=== PATIENT | female | born 1950 | race Caucasian/White ===

== ENCOUNTER 2018-06-16 10:46 | Inpatient (IN) | payer OTHER ==
[2018-06-16] MEDS ORDERED: HYDROCODONE/APAP 5/325 MG TAB ONE (11:36)
[2018-06-16 13:10] LABS: Absolute Lymphocytes (CBC) 1.3 K/uL (0.7-4.9); Absolute Monocytes 0.7 K/uL (0.1-1.3); Absolute Neutrophil 5.3 K/uL (1.8-8.0); Eosinophils % 0.5 % (0-4.4); Hematocrit 40.3 % (36.0-45.0); Lymphocytes % 17.9 % (15.3-44.8); MCH 34.8 pg (27.0-35.0); MCV 97.6 fL (80-100); MPV 8.6 fL (7.6-11.3); Monocytes % 8.8 % (3.3-12.3); RBC Red Blood Cell Count 4.13 M/uL (3.86-4.86)
[2018-06-16 13:14] LABS: Protime INR 0.91
[2018-06-16 13:28] LABS: ALT/SGPT 28 U/L (12-78); AST/SGOT 29 U/L (15-37); Albumin 3.6 g/dL (3.4-5.0); Alkaline Phosphatase 40 U/L (45-117); BUN Blood Urea Nitrogen 14 mg/dL (7-18); Bicarbonate 30 mmol/L (21-32); Bilirubin Direct 0.3 mg/dL (0-0.2); Bilirubin Total 0.9 mg/dL (0.2-1.0); Glucose Level 121 mg/dL (74-106); NT PRO-BNP 248 pg/mL (<125); Potassium 3.8 mmol/L (3.5-5.1); Protein, Total 7.6 g/dL (6.4-8.2); Sodium Level 134 mmol/L (136-145); Troponin (Emerg Dept Use Only) < 0.02 ng/mL (0.0-0.045)
--- NOTE | 2018-06-16 13:42 | RAD REPORT ---
EXAM DESCRIPTION: RAD - Chest Single View - 06/16/2018 12:51 pm CLINICAL HISTORY: Preop chest, right femur fracture COMPARISON: None. TECHNIQUE: AP portable chest image was obtained 1212 hours . FINDINGS: Hyperexpanded and fibrotic lung changes are present. No superimposed failure, infiltrate o r mass. Left hemidiaphragm is elevated. Heart and vasculature are normal. No measurable pleural effus ion and no pneumothorax. No acute bony abnormality seen. No acute aortic findings suspected. IMPRESSION: COPD chronic changes with no acute component.
--- NOTE | 2018-06-16 13:42 | RAD REPORT ---
EXAM DESCRIPTION: RAD - Hip Right 2 View - 06/16/2018 12:51 pm CLINICAL HISTORY: Fall, hip pain COMPARISON: None. FINDINGS: AP and cross-table lateral views were obtained. Transverse fracture of the femoral neck is present. Patient has a relatively short femoral neck with a fracture involving the subcapital and mi dportion of the neck. No extension into the intertrochanteric bone. No pathologic bone process. There is mild impaction along the medial margin of the fracture line. No dislocation of the femoral head. No femoral head AVN suspected. No significant periarticular mass or hematoma. Arterial calcifications are present. IMPRESSION: Impacted right femoral neck fracture as detailed. No pathologic component. No extension into the intertrochanteric portion of the femur.
--- NOTE | 2018-06-16 13:42 | RAD REPORT ---
EXAM DESCRIPTION: RAD - Lumbar Spine 3 Views - 06/16/2018 12:51 pm CLINICAL HISTORY: Fall 3 days earlier, back pain COMPARISON: None. FINDINGS: A three-view lumbar spine examination was performed. No compression fracture. Lumbar alexx s are normal in height and normal in AP alignment. Patient has a thoracolumbar scoliotic curvature. T here is left convex curvature with the apex at L4. Right lower thoracic convex [place] at T11. The L4 guilherme dy shows a very slight left lateral subluxation. Patient has mild for age endplate spurring changes. No blastic or expansile change. No lytic bone process. No disc space narrowing. Facet joint degenerat frankie changes are present. No pars defects identified. IMPRESSION: Mild for age degenerative change along with underlying thoracolumbar scoliosis. No compression fracture or acute finding identifiable.
--- NOTE | 2018-06-16 13:42 | RAD REPORT ---
EXAM DESCRIPTION: RAD - Pelvis - 06/16/2018 12:51 pm CLINICAL HISTORY: Fall, pelvic pain COMPARISON: None. TECHNIQUE: AP imaging of the pelvis was obtained. FINDINGS: No fracture of the bony pelvis. Sacral ala are partially obscured by bowel. No gross SI fabienne int abnormality. Proximal left femur and left hip joint show no acute findings. Right femoral neck fr acture is separately detailed. Phleboliths are seen along the pelvic floor. Arterial calcifications are present. No soft tissue abnormality. IMPRESSION: No fracture or acute finding of the bony pelvis. Right femur neck fracture separately detailed.
--- NOTE | 2018-06-16 14:26 | EDPHYS ---
Physician Documentation [facility] Name: Clari Brandt Age: 67 yrs Sex: Female : 1950 Arrival Date: 06/16/2018 Time: 10:47 Bed 15 Private MD: ED Physician Orlin Andrews HPI: 06/16 11:09 This 67 yrs old Female presents to ER via EMS with complaints of Fall Injury. jmm 11:09 Details of fall: The patient fell from an upright position. Onset: The symptoms/episode jmm began/occurred acutely, 3 day(s) ago. Associated injuries: The patient sustained right hip. This is a 67 year old female with a history of COPD, HTN, that presents to the ED with right hip pain following a fall which occurred 3 days ago. Patient walking down a step, began to fall, turned to her left side landing on her left hip. Denies head injury, denies back pain. Patient has been able to walk. . Historical: - Allergies: 10:52 No Known Allergies; hj - Home Meds: 10:52 carvedilol oral oral [Active]; amlodipine oral [Active]; alendronate oral oral hj [Active]; pravastatin oral oral [Active]; - PMHx: 10:52 Hypertension; Hyperlipidemia; Atrial Fib; COPD; hj - PSHx: 10:52 Unable to obtain; hj - Immunization history:: Adult Immunizations up to date. - Social history:: Smoking status: Patient uses tobacco products, Patient uses alcohol. - Ebola Screening: : Patient negative for fever greater than or equal to 101.5 degrees Fahrenheit, and additional compatible Ebola Virus Disease symptoms Patient denies exposure to infectious person Patient denies travel to an Ebola-affected area in the 21 days before illness onset. ROS: 11:09 Constitutional: Negative for fever, chills, and weight loss. jmm 11:09 Back: Negative for pain at rest. 11:09 MS/extremity: Positive for pain. 11:09 All other systems are negative. Exam: 11:09 Head/Face: atraumatic. Eyes: EOMI, no conjunctival erythema appreciated ENT: Moist jm Mucus Membranes Neck: Trachea midline, Supple Chest/axilla: Normal chest wall appearance and motion. Cardiovascular: Regular rate and rhythm. No edema appreciated Respiratory: Normal respirations, no respiratory distress appreciated Abdomen/GI: Non distended, soft Back: Normal ROM 11:09 Constitutional: The patient appears in no acute distress, alert, awake. 11:09 Musculoskeletal/extremity: right lateral hip TTP, no groin pain, pain on flexion, compartments are soft, full dorsalis pedis pulse, NVI. 11:09 Neuro: full extensor hallucis longus to the right lower extremity. 11:09 Psych: Behavior/mood is pleasant, cooperative. Vital Signs: 10:54 BP 126 / 67; Pulse 78; Resp 18; Temp 98.3(O); Pulse Ox 93% on R/A; Weight 46.72 kg; hj Height 5 ft. 2 in. (157.48 cm); Pain 8/10; 12:00 BP 121 / 69; Pulse 80; Resp 19; Pulse Ox 95% on 2 lpm NC; aj 13:11 BP 136 / 68; Pulse 71; Resp 20; Pulse Ox 95% on 2 lpm NC; aj 13:59 Pulse 70; Resp 26; Pulse Ox 95% on 2 lpm NC; 5 15:21 BP 126 / 73; Pulse 68; Resp 22; Pulse Ox 94% on 2 lpm NC; aj 10:54 Body Mass Index 18.84 (46.72 kg, 157.48 cm) hj MDM: 11:09 Patient medically screened. [facility] 13:30 Data reviewed: vital signs, nurses notes. Counseling: I had a detailed discussion with [facility] the patient and/or guardian regarding: the historical points, exam findings, and any diagnostic results supporting the discharge/admit diagnosis, the presence of at least one elevated blood pressure reading (>120/80) during this emergency department visit, radiology results. 14:22 Data reviewed: lab test result(s), EKG, radiologic studies. ED course: I discussed the [facility] patient with Dr. Jones whom will see the patient inpatient tomorrow. I discussed the patient with Dr. Khalil whom accepted admission. . 06/16 12:20 Order name: CBC with Diff; Complete Time: 13:21 [facility] 06/16 12:20 Order name: CMP; Complete Time: 13:29 [facility] 06/16 12:20 Order name: LFT's; Complete Time: 13:29 [facility] 06/16 12:20 Order name: Magnesium; Complete Time: 13:29 [facility] 06/16 12:20 Order name: NT PRO-BNP; Complete Time: 13:29 [facility] 06/16 11:15 Order name: Lumbar Spine (3 Views) XRAY; Complete Time: 13:48 [facility] 06/16 12:20 Order name: PT-INR; Complete Time: 13:21 [facility] 06/16 12:20 Order name: Troponin (emerg Dept Use Only); Complete Time: 13:29 [facility] 06/16 14:05 Order name: Urine Dipstick--Ancillary (enter results) ag 06/16 14:38 Order name: Basic Metabolic Panel EDWI 06/16 14:38 Order name: Basic Metabolic Panel [facility] 06/16 14:38 Order name: CBC with Automated Diff [facility] 06/16 14:38 Order name: CBC with Automated Diff [facility] 06/16 11:15 Order name: Pelvis XRAY; Complete Time: 13:48 [facility] 06/16 11:15 Order name: Hip Right 2 View XRAY; Complete Time: 13:48 [facility] 06/16 12:20 Order name: EKG; Complete Time: 12:21 [facility] 06/16 12:20 Order name: Cardiac monitoring; Complete Time: 13:09 [facility] 06/16 12:20 Order name: EKG - Nurse/Tech; Complete Time: 13:09 [facility] 06/16 12:20 Order name: IV Saline Lock; Complete Time: 13:09 [facility] 06/16 12:20 Order name: Labs collected and sent; Complete Time: 13:10 [facility] 06/16 12:20 Order name: O2 Per Protocol; Complete Time: 13:10 [facility] 06/16 12:20 Order name: O2 Sat Monitoring; Complete Time: 13:10 [facility] 06/16 12:37 Order name: Chest Single View XRAY; Complete Time: 13:48 [facility] 06/16 13:58 Order name: Mandel; Complete Time: 13:58 5 06/16 14:38 Order name: CONS Physician Consult [facility] 06/16 14:38 Order name: [facility] EDWI Administered Medications: 11:39 Drug: [place] 5 mg-325 mg 1 tabs Route: PO; aj 13:10 Follow up: Response: Pain is unchanged, physician notified aj Disposition: 06/16/18 14:25 Hospitalization ordered by Mansi Khalil for Observation. Preliminary diagnosis is Fracture of unspecified part of neck of unspecified femur. - Bed requested for Telemetry/MedSurg (observation). - Status is Observation. jl7 - Condition is Stable. - Problem is new. - Symptoms are unchanged. UTI on Admission? No Signatures: Dispatcher [employer] EDWI Adriana Byrne, RN RN Swetha Mackenzie, RN RN Gael Jones PA PA [facility] Vinay Vincent, RN LISA [facility] Ángel Gonzales RN RN jl7 Corrections: (The following items were deleted from the chart) 12:21 12:21 BASIC METABOLIC PANEL+C.LAB.BRZ ordered. [facility] 15:20 14:25 Hospitalization Ordered by Mansi Khalil MD for Observation. Preliminary dw diagnosis is Fracture of unspecified part of neck of unspecified femur. Bed requested for Telemetry/MedSurg (observation). Status is Observation. Condition is Stable. Problem is new. Symptoms are unchanged. UTI on Admission? No. [facility] 15:57 15:20 06/16/2018 14:25 Hospitalization Ordered by Mansi Khalil MD for Observation. jl7 Preliminary diagnosis is Fracture of unspecified part of neck of unspecified femur. Bed requested for Telemetry/MedSurg (observation). Status is Observation. Condition is Stable. Problem is new. Symptoms are unchanged. UTI on Admission? No. dw
--- NOTE | 2018-06-16 14:26 | ER ---
Nurse's Notes [facility] Name: Clari Brandt Age: 67 yrs Sex: Female : 1950 Arrival Date: 06/16/2018 Time: 10:47 Bed 15 Private MD: Diagnosis: Fracture of unspecified part of neck of unspecified femur Presentation: 06/16 10:48 Presenting complaint: EMS states: pt fell 3 days ago at home, tripped over her dog, hj denies hitting head and denies taking blood thinners; now pt complained of R lower back, hip area pain and R buttocks region pain; per EMS, couldn't palpate pedal pulse on the RLE; hx of COPD; BP- 132/86; HR- 76; O2 sat 89% RA; on 3L- 95% O2 sat;. Transition of care: patient was not received from another setting of care. Onset of symptoms was June 13, 2018. Risk Assessment: Do you want to hurt yourself or someone else? Patient reports no desire to harm self or others. Initial Sepsis Screen: Does the patient meet any 2 criteria? No. Patient's initial sepsis screen is negative. Does the patient have a suspected source of infection? No. Patient's initial sepsis screen is negative. Care prior to arrival: None. 10:48 Method Of Arrival: EMS: [facility] 10:48 Acuity: SNEHA 4 hj Triage Assessment: 10:53 General: Appears in no apparent distress. uncomfortable, slender, Behavior is calm, hj cooperative, appropriate for age. Pain: Complains of pain in R lower back, R hip, R buttocks. Historical: - Allergies: 10:52 No Known Allergies; hj - Home Meds: 10:52 carvedilol oral oral [Active]; amlodipine oral [Active]; alendronate oral oral hj [Active]; pravastatin oral oral [Active]; - PMHx: 10:52 Hypertension; Hyperlipidemia; Atrial Fib; COPD; hj - PSHx: 10:52 Unable to obtain; hj - Immunization history:: Adult Immunizations up to date. - Social history:: Smoking status: Patient uses tobacco products, Patient uses alcohol. - Ebola Screening: : Patient negative for fever greater than or equal to 101.5 degrees Fahrenheit, and additional compatible Ebola Virus Disease symptoms Patient denies exposure to infectious person Patient denies travel to an Ebola-affected area in the 21 days before illness onset. Screenin:53 Abuse screen: Denies threats or abuse. Denies injuries from another. Nutritional hj screening: No deficits noted. Tuberculosis screening: No symptoms or risk factors identified. Fall Risk None identified. Assessment: 11:04 General: Appears in no apparent distress. comfortable, Behavior is calm, cooperative, aj appropriate for age. Neuro: Level of Consciousness is awake, alert, obeys commands, Oriented to person, place, time, situation, Appropriate for age. Respiratory: Airway is patent Respiratory effort is even, unlabored, Respiratory pattern is regular, symmetrical. Derm: Skin is intact, is healthy with good turgor, Skin is pink, warm \T\ dry. normal. Musculoskeletal: Circulation, motion, and sensation intact. Range of motion: intact in all extremities, Reports pain in coccyx, left lower back, left gluteus yasmin and left gluteal fold. 15:34 Reassessment: Patient appears in no apparent distress at this time. No changes from aj previously documented assessment. Patient and/or family updated on plan of care and expected duration. Pain level reassessed. Patient is alert, oriented x 3, equal unlabored respirations, skin warm/dry/pink. Patient's went home. Vital Signs: 10:54 BP 126 / 67; Pulse 78; Resp 18; Temp 98.3(O); Pulse Ox 93% on R/A; Weight 46.72 kg; hj Height 5 ft. 2 in. (157.48 cm); Pain 8/10; 12:00 BP 121 / 69; Pulse 80; Resp 19; Pulse Ox 95% on 2 lpm NC; aj 13:11 BP 136 / 68; Pulse 71; Resp 20; Pulse Ox 95% on 2 lpm NC; aj 13:59 Pulse 70; Resp 26; Pulse Ox 95% on 2 lpm NC; mh5 15:21 BP 126 / 73; Pulse 68; Resp 22; Pulse Ox 94% on 2 lpm NC; aj 10:54 Body Mass Index 18.84 (46.72 kg, 157.48 cm) ED Course: 10:47 Patient arrived in ED. hj 10:50 Triage completed. hj 10:53 Arm band placed on right wrist. hj 10:53 Patient has correct armband on for positive identification. Placed in gown. Bed in low hj position. Call light in reach. Side rails up X2. 10:57 Gael Foley PA is PHCP. [facility] 10:57 Orlin Andrews MD is Attending Physician. [facility] 11:04 Swetha Kellogg, RN is Primary Nurse. aj 11:04 Oxygen administration via nasal cannula \T\ 2L/min Response to oxygen therapy: symptoms aj improved. 12:15 Inserted saline lock: 22 gauge in right forearm, using aseptic technique. Blood aj collected. 12:51 Lumbar Spine (3 Views) XRAY In Process Unspecified. EDMS 12:51 Pelvis XRAY In Process Unspecified. EDMS 12:51 Hip Right 2 View XRAY In Process Unspecified. EDMS 12:51 Chest Single View XRAY In Process Unspecified. EDMS 13:19 EKG done, by ED staff, reviewed by Orlin Andrews MD. [facility] 13:56 Urine collected: Mandel catheter specimen, nan colored. Mandel cath inserted, using 5 sterile technique, 16 Fr., by az, balloon inflated, to gravity drainage, urine specimen collected. 14:23 Mansi Khalil MD is Hospitalizing Provider. [facility] 15:25 No provider procedures requiring assistance completed. Patient admitted, IV remains in aj place. intact. Administered Medications: 11:39 Drug: [place] 5 mg-325 mg 1 tabs Route: PO; aj 13:10 Follow up: Response: Pain is unchanged, physician notified aj Outcome: 14:25 Decision to Hospitalize by Provider. [facility] 15:34 Admitted to Med/surg accompanied by [facility], via stretcher, room 209, with chart, Report aj called to Kei 15:34 Condition: good 15:34 Instructed on the need for admit. 15:57 Patient left the ED. jl7 Signatures: Dispatcher [employer] EDMS Swetha Kellogg, RN RN Gael Jones PA PA [facility] Vinay Vincent RN RN hj Martinez, Maria [facility] Ángel Gonzales RN RN jl7 Corrections: (The following items were deleted from the chart) 10:55 10:48 Presenting complaint: EMS states: pt fell 3 days ago at home, tripped over her hj dog, denies hitting head and denies taking blood thinners; now pt complained of R lower back, hip area pain and R buttocks region pain; per EMS, couldn't palpate pedal pulse on the RLE; hx of COPD; hj
[2018-06-16] MEDS ORDERED: ONDANSETRON 4 MG/2 ML VIAL IV PRN (14:36)
[2018-06-16] MEDS ORDERED: ACETAMINOPHEN 500 MG TAB PO PRN (14:36)
[2018-06-16] MEDS ORDERED: HYDROCODONE/APAP 5/325 MG TAB PO PRN (14:36)
--- NOTE | 2018-06-16 15:53 | P.HP ---
Certification for Inpatient Patient admitted to: Inpatient With expected LOS: >2 Midnights Patient will require the following post-hospital care: None Practitioner: I am a practitioner with admitting privileges, knowledge of patient current condition, hospital course, and medical plan of care. Services: Services provided to patient in accordance with Admission requirements found in Title 42 Section 412.3 of the Code of Federal Regulations Patient History Date of Service: 06/16/18 Primary Care Provider: Dr Gamez Reason for admission: Hip fracture History of Present Illness: This is a 67-year-old female with significant past medical history of high blood pressure, hyperlipidemia, tobacco abuse, COPD, who presented to the ED after having a fall. Patient stated that she had a fall about 4 days ago when she was out walking her dog. She slipped and fell at the porch. She started having some pain on the right hip but it is thought that it was just a sprain and will go away. Patient started using her walker for the next couple of days and was having progressively worsening pain and thus decided to come to the ER. Patient also had trouble tolerating weight to that area since the fall. Patient has no other complaints to offer. Denies having any fever chills nausea vomiting chest pain or any other associated symptoms at this time Allergies No Known Allergies Allergy (Unverified 06/16/18 14:45) Home Medications: Alendronate Sodium [Fosamax] 70 mg PO EVERY 7TH DAY 06/16/18 Amlodipine Besylate [Norvasc] 5 mg PO DAILY 06/16/18 Carvedilol [Coreg] 12.5 mg PO BID 06/16/18 Pravastatin Sodium [Pravachol] 20 mg PO DAILY 06/16/18 - Past Medical/Surgical History Has patient received pneumonia vaccine in the past: No Diabetic: No -: HTN -: HLP -: Afib -: COPD Past Surgical History: Reviewed- Non-Contributory - Family History Family History: Reviewed- Non-Contributory - Social History Smoking Status: Never smoker Review of Systems 10-point ROS is otherwise unremarkable Physical Examination - Physical Exam General: Alert, In no apparent distress HEENT: Atraumatic, PERRLA, Mucous membr. moist/pink, EOMI, Sclerae nonicteric Neck: Supple, 2+ carotid pulse no bruit, No LAD, Without JVD or thyroid abnormality Respiratory: Clear to auscultation bilaterally, Normal air movement Cardiovascular: Regular rate/rhythm, Normal S1 S2 Gastrointestinal: Normal bowel sounds, No tenderness Musculoskeletal: Tenderness (to the Right hip joint) Integumentary: No rashes Neurological: Normal speech, Normal tone, Abnormal gait, Abnormal strength Lymphatics: No axilla or inguinal lymphadenopathy - Studies Laboratory Data (last 24 hrs) 06/16/18 12:53: PT 10.7, INR 0.91 06/16/18 12:53: Sodium 134 L, Potassium 3.8, BUN 14, Creatinine 0.50 L, Glucose 121 H, Magnesium 2.0, Total Bilirubin 0.9, AST 29, ALT 28, Alkaline Phosphatase 40 L 06/16/18 12:53: WBC 7.4, Hgb 14.4, Hct 40.3, Plt Count 230 Assessment and Plan - Problems (Diagnosis) (1) Hip fracture Current Visit: Yes Status: Acute Plan: Right hip fracture status post fall -orthopedic surgery consulted. Appreciated recommendations at this time -plan for surgical procedure tomorrow morning. -NPO after midnight. -IV fluids Qualifiers: Encounter type: initial encounter Fracture type: closed Laterality: right Qualified Code(s): S72.001A - Fracture of unspecified part of neck of right femur, initial encounter for closed fracture (2) HTN (hypertension) Current Visit: Yes Status: Chronic Plan: Currently stable. Will restart home medication Qualifiers: Hypertension type: essential hypertension Qualified Code(s): I10 - Essential (primary) hypertension (3) Hyperlipidemia Current Visit: Yes Status: Chronic Plan: Currently stable will restart home medication Qualifiers: Hyperlipidemia type: mixed hyperlipidemia Qualified Code(s): E78.2 - Mixed hyperlipidemia (4) COPD (chronic obstructive pulmonary disease) Current Visit: Yes Status: Chronic Plan: Nebulizing treatment p.r.n. Qualifiers: COPD type: chronic bronchitis Chronic bronchitis type: mucopurulent Qualified Code(s): J41.1 - Mucopurulent chronic bronchitis - Plan Patient will be admitted to the medical-surgical floor for possible surgical procedure with orthopedic surgery tomorrow. Will continue with IV fluids and high monitoring here for the next 24-48 hr. Discharge Plan: Other Plan to discharge in: Greater than 2 days - Advance Directives Does patient have a Living Will: Yes Does patient have a Durable POA for Healthcare: Yes - Code Status/Comfort Care Code Status Assessed: Yes Critical Care: No
[2018-06-16] MEDS ORDERED: IPRATROPIUM BROM 0.5MG/2.5ML NEB PRN (15:56)
[2018-06-16] MEDS ORDERED: LEVALBUTEROL 0.63 MG/3 ML NEB NEB PRN (15:56)
[2018-06-16] MEDS: MORPHINE 4 MG/ML SYR IV PRN ×2 (16:08→21:35)
[2018-06-16] MEDS: NA CHLORIDE 0.9% 1,000 ML IV SCH (16:37)
[2018-06-16] MEDS ORDERED: INFLUENZA VACCINE (for 3y+) 0.5 ML DOSE IMVAC ONE (17:00)
[2018-06-16] MEDS ORDERED: PNEUMOCOCCAL VACCINE 0.5 ML IMVAC ONE (17:00)
[2018-06-16 19:21] LABS: Urine Blood 2+ (NEG); Urine Glucose NEGATIVE (NEG); Urine Protein 1+ (NEG)
[2018-06-16] MEDS: ATORVASTATIN 10 MG TAB PO SCH (21:36)
[2018-06-16] MEDS: CARVEDILOL 12.5 MG TAB PO SCH (21:36)
[2018-06-17] MEDS: NA CHLORIDE 0.9% 1,000 ML IV SCH ×2 (01:45→12:00)
--- NOTE | 2018-06-17 04:23 | CON ---
Date of Consultation: 06/16/2018 History Of Present Illness: I have seen this patient in the past, however, not for this problem. Un fortunately on Monday, she was coming down some stairs and apparently twisted awkwardly and perhaps even fell, injuring her right upper extremity and her right lower extremity. She continues to walk w ith the use of a walker, although she was in pain. She had to come to the emergency room today for c ontinued pain in her right hip. She thought it was just bruise. Physical Examination: On physical examination, she has a small scrape on her elbow, but she has full range of motion and es sentially no pain at the elbow. She also denies any other pain and there is no pain or crepitation w ith palpation of any of her long bones or joints with the exception of her right hip. Right hip has pain with movement and manipulation. X-rays are reviewed, which revealed a displaced right femoral neck fracture. Assessment: A 67-year-old female who will be 68 in August, who has a history of chronic obstructiv e pulmonary disease. She is relatively low demand. She does go outside and walk the dog. She does also feed the chickens and she may walk to the mailbox, but otherwise has very low demands. She also has history of chronic obstructive pulmonary disease. We did discuss bipolar hemiarthroplasty versu s total hip arthroplasty. At this time, she has reviewed her options with regard to possible groin p ain or need for revision if she has had bands. Also discussed total hip arthroplasty, and the risks, benefits, and alternatives of each, including a total hip arthroplasty, perhaps have a higher incide nce of dislocation and longer operative time. She says she understands everything, is presented at t his time and opts for bipolar hemiarthroplasty. We probably will, however, go ahead and use a high d emand stem. We will plan on doing this tomorrow. She should be n.p.o. after midnight. We will spea jasmin with physician regarding SCDs as well as medical clearance. All the patient's questions have otherwise been invited and answered. /LUL Voice ID: [id number] Report ID: [id number]
[2018-06-17 05:40] LABS: Absolute Lymphocytes (CBC) 1.3 K/uL (0.7-4.9); Absolute Monocytes 0.7 K/uL (0.1-1.3); Absolute Neutrophil 4.1 K/uL (1.8-8.0); Basophils % 1.2 % (0-1.3); Eosinophils % 1.5 % (0-4.4); Hematocrit 35.2 % (36.0-45.0); Lymphocytes % 20.6 % (15.3-44.8); MCV 99.9 fL (80-100); MPV 8.3 fL (7.6-11.3); Monocytes % 10.7 % (3.3-12.3); RBC Red Blood Cell Count 3.53 M/uL (3.86-4.86)
[2018-06-17 05:50] LABS: BUN Blood Urea Nitrogen 7 mg/dL (7-18); Bicarbonate 30 mmol/L (21-32); Glucose Level 95 mg/dL (74-106); Potassium 3.2 mmol/L (3.5-5.1); Sodium Level 135 mmol/L (136-145)
[2018-06-17] MEDS: MORPHINE 4 MG/ML SYR IV PRN ×2 (07:36→20:16)
[2018-06-17] MEDS: KCL 20 MEQ/100 mL IVPB 20 MEQ/100 ML BAG IV SCH ×2 (08:01→10:00)
[2018-06-17] MEDS ORDERED: HOME MED 1 EA UNK (Pravastatin Sodium [Pravachol] 20 MG) PO SCH (09:00)
[2018-06-17] MEDS: AMLODIPINE 5 MG TAB PO SCH (09:00)
[2018-06-17] MEDS: CARVEDILOL 12.5 MG TAB PO SCH ×2 (09:14→20:17)
[2018-06-17] MEDS ORDERED: Ringers Lactate 1,000 ML IV ONE ×2 (09:32→12:22)
[2018-06-17] MEDS ORDERED: CEFAZOLIN/SWI 1gm 2 GM/20 ML SYR ONE (09:55)
[2018-06-17] MEDS ORDERED: TRANEXAMIC ACID 1,000 MG in NA CHLORIDE 0.9% 50 ML IV ONE (10:00)
[2018-06-17] MEDS ORDERED: SUCCINYLCHOLINE 20 MG/ML (10 ML) IV ONE (10:05)
[2018-06-17] MEDS ORDERED: ROCURONIUM 50 MG/5 ML VIAL IV ONE (10:09)
[2018-06-17] MEDS ORDERED: PROPOFOL 200 MG/20 ML VIAL IV ONE (10:09)
[2018-06-17] MEDS ORDERED: FENTANYL CITR 250 MCG/5 ML ONE (10:10)
--- NOTE | 2018-06-17 11:15 | P.PN ---
Subjective Date of Service: 06/17/18 Primary Care Provider: Dr Gamez Chief Complaint: Hip fracture Subjective: No C/O voiced, NPO, Doing well Awaiting Surgery this AM Review of Systems 10-point ROS is otherwise unremarkable Physical Examination - Vital Signs Temperature: 98.7 F Blood Pressure: 134/60 Pulse: 74 Respirations: 18 Pulse Ox (%): 91 - Physical Exam General: Alert, In no apparent distress HEENT: Atraumatic, PERRLA, EOMI Neck: Supple, JVD not distended Respiratory: Clear to auscultation bilaterally, Normal air movement Cardiovascular: Regular rate/rhythm, Normal S1 S2 Gastrointestinal: Normal bowel sounds, No tenderness Musculoskeletal: No tenderness Integumentary: No rashes Neurological: Normal speech, Normal tone, Normal affect Lymphatics: No axilla or inguinal lymphadenopathy - Studies Laboratory Data (last 24 hrs) 06/16/18 12:53: PT 10.7, INR 0.91 06/16/18 12:53: Sodium 134 L, Potassium 3.8, BUN 14, Creatinine 0.50 L, Glucose 121 H, Magnesium 2.0, Total Bilirubin 0.9, AST 29, ALT 28, Alkaline Phosphatase 40 L 06/16/18 12:53: WBC 7.4, Hgb 14.4, Hct 40.3, Plt Count 230 Medications List Reviewed: Yes Assessment And Plan - Current Problems (Diagnosis) (1) Hip fracture Current Visit: Yes Status: Acute Plan: Right hip fracture status post fall -orthopedic surgery consulted. Appreciated recommendations at this time -plan for surgical procedure today -NPO at this time -IV fluids Qualifiers: Encounter type: initial encounter Fracture type: closed Laterality: right Qualified Code(s): S72.001A - Fracture of unspecified part of neck of right femur, initial encounter for closed fracture (2) HTN (hypertension) Current Visit: Yes Status: Chronic Plan: Currently stable. -Started on Home medication Qualifiers: Hypertension type: essential hypertension Qualified Code(s): I10 - Essential (primary) hypertension (3) Hyperlipidemia Current Visit: Yes Status: Chronic Plan: Currently stable Qualifiers: Hyperlipidemia type: mixed hyperlipidemia Qualified Code(s): E78.2 - Mixed hyperlipidemia (4) COPD (chronic obstructive pulmonary disease) Current Visit: Yes Status: Chronic Plan: Nebulizing treatment p.r.n. Qualifiers: COPD type: chronic bronchitis Chronic bronchitis type: mucopurulent Qualified Code(s): J41.1 - Mucopurulent chronic bronchitis - Plan Awaiting surgical Intervention this AM with orthopedics. Discharge Plan: Other Plan to discharge in: 48 Hours - Code Status/Comfort Care Code Status Assessed: Yes Critical Care: No
[2018-06-17] MEDS: HYDROCODONE/APAP 10/325 TAB PO PRN ×2 (15:42→23:56)
[2018-06-17] MEDS: CEFAZOLIN/SWI 1gm 1 GM/10 ML SYR IV SCH (17:13)
[2018-06-17] MEDS ORDERED: KCL 20 MEQ/100 mL IVPB 20 MEQ/100 ML BAG IV SCH (18:00)
[2018-06-17] MEDS: ATORVASTATIN 10 MG TAB PO SCH (20:16)
--- NOTE | 2018-06-17 23:07 | OP ---
Date of Procedure: 06/17/2018 Surgeon: Pio Jones MD Preoperative Diagnosis: Right hip femoral neck fracture, which was displaced. Postoperative Diagnosis: Right hip femoral neck fracture, which was displaced. Procedures: Right hip bipolar hemiarthroplasty using a Biomet Taperloc stem and a bipolar head, whic h is -3. Estimated Blood Loss: 100 cc. Complications: There were no complications. Specimen: The head and neck are sent to pathology. Indication For Operation: Ms. Brandt is a 67-year-old female who has COPD, is relatively low demand. She does walk, however, mostly feeding chickens and perhaps walk the dog, but otherwise, is a limit ed ambulator. She unfortunately fell down some stairs, injuring her right lower extremity. She was seen and examined in the emergency department. She was ruled out for other injuries with the excepti on of a displaced right femoral neck fracture. On further review of her history, she said this happe robert most likely on Monday, initially being seen on Monday in the emergency room because she though t she had just bruised. All risks, benefits, and alternatives of different methods of treating this fracture been discussed with her including nonoperative management, open reduction of screw fixation, total hip arthroplasty or bipolar hemiarthroplasty. Given all risks, benefits, and alternatives, th e patient has decided on bipolar hemiarthroplasty. We will, however, use a higher demand stem in rebecca e she develops groin pain or has difficulty which would necessitate conversion to a total hip arthrop lasty. She says she understands everything as presented and wishes to proceed. Description Of Procedure: The patient was taken to the operating room, placed in supine position. G eneral anesthesia was obtained by staff. Following this, she was then placed on the operative table where she was positioned using hip positioners. Following this, her right lower extremity was then p repped and draped in usual sterile fashion for the procedure. A standard posterolateral incision was then taken down carefully through skin and soft tissues. Meticulous hemostasis being maintained usi ng Bovie electrocautery. This leads down to the fascia. A small stab wound was made in the fascia t o ensure correct placement. The fascial incision was then brought up carefully to near the tip of th e greater trochanter where the gluteus yasmin were encountered. These were then gently divided usin edie finger. After this, the sciatic nerve was located and was found to be superficial to the external rotators, and therefore, great care was made to protect it throughout the remainder of the case. Fol lowing this, the external rotators and capsule were then taken down carefully and tagged for later re pair. The femoral neck was performed using standard neck cut. The femoral neck fragments as well as head were then removed. The head was sized using ring gauges which would fit through 43. After thi s, any debris or obstructions in the acetabulum were then removed. The teres ligament was coagulated . The wound was irrigated using jet lavage. The patient was then turned back to the femur where can al-finding reamer was used followed by the safety deposit boxes custodian, which allows for lateralization. After this, it was then broached sequentially to a size 8 and the 8 appeared to fit very well without any sign of subsidence. It was then trialed with a standard ball. Standard ball does come to full extension wi th a slight amount of creaking. Decision was made to trial with a -3. The -3 you can bring to full flexion, full adduction at least 30 degrees of internal rotation for any sign of dislocation. We dec ided that this would be the most appropriate size. There was no shuck either laterally or inferiorly . The broach was removed and the final stem was then placed. It was then again re-trialed and was f ound to be stable in the above areas. The final ball was then placed and relocated. The wound was i rrigated using jet lavage and the external rotators and capsule were then repaired back to the greate r trochanter via bone tunnels. It was again irrigated and the fascia was closed in a watertight fash ion using heavy Vicryl sutures, was again irrigated. The skin was closed using interrupted Vicryl magallon tures, followed by ynes. The patient was then placed in Aquacel dressing and an abduction pillow, awakened, and taken to recovery room in good condition. There were no complication sAntoni KHOURY/LUL Voice ID: [id number] Report ID: [id number]
[2018-06-18] MEDS: CEFAZOLIN/SWI 1gm 1 GM/10 ML SYR IV SCH ×3 (01:32→17:26)
[2018-06-18 05:32] LABS: BUN Blood Urea Nitrogen 6 mg/dL (7-18); Bicarbonate 30 mmol/L (21-32); Glucose Level 100 mg/dL (74-106); Potassium 3.3 mmol/L (3.5-5.1); Sodium Level 134 mmol/L (136-145)
[2018-06-18] MEDS ORDERED: POTASSIUM 25 MEQ EFFERV TAB PO ONE (06:13)
[2018-06-18] MEDS: HYDROCODONE/APAP 10/325 TAB PO PRN ×3 (06:42→23:06)
[2018-06-18] MEDS: CARVEDILOL 12.5 MG TAB PO SCH ×2 (09:00→21:02)
[2018-06-18] MEDS: AMLODIPINE 5 MG TAB PO SCH (09:00)
[2018-06-18] MEDS: NA CHLORIDE 0.9% 1,000 ML IV SCH ×2 (10:02)
--- NOTE | 2018-06-18 10:14 | EKG ---
Test Date: 2018-06-16 Test Time: 13:06:33 [employer] Sales Associate: CELENA MEASUREMENT RESULTS: Intervals: Rate: 65 DE: 80 QRSD: 74 QT: 416 QTc: 432 [place]: P: 30 DE: 80 QRS: 82 T: 78 INTERPRETIVE STATEMENTS: Sinus rhythm with short DE Otherwise normal ECG Compared to ECG 06/16/2000 20:36:00 Short DE interval now present Electronically Signed On 06-18-18 10:13:05 CDT by Dragan Crenshaw
--- NOTE | 2018-06-18 13:56 | P.PN ---
Subjective Date of Service: 06/18/18 Primary Care Provider: Dr Gamez Chief Complaint: Hip fracture PATIENT SEEN AND EXAMINED AT BEDSIDE WITH RN. CHART REVIEWED. Patient is status post ORIF. Doing well overall no complaints to offer Review of Systems 10-point ROS is otherwise unremarkable Physical Examination - Vital Signs Temperature: 98.3 F Blood Pressure: 142/66 Pulse: 78 Respirations: 20 Pulse Ox (%): 93 - Physical Exam General: Alert, In no apparent distress HEENT: Atraumatic, PERRLA, EOMI Neck: Supple, JVD not distended Respiratory: Clear to auscultation bilaterally, Normal air movement Cardiovascular: Regular rate/rhythm, Normal S1 S2 Gastrointestinal: Normal bowel sounds, No tenderness Musculoskeletal: No tenderness Integumentary: No rashes Neurological: Normal speech, Normal tone, Normal affect Lymphatics: No axilla or inguinal lymphadenopathy - Studies Medications List Reviewed: Yes Assessment And Plan - Current Problems (Diagnosis) (1) Hip fracture Onset Date: 06/18/18 Current Visit: Yes Status: Acute Plan: Right hip fracture status post fall -orthopedic surgery consulted. Appreciated recommendations at this time -status post ORIF POD 1 -Send currently patient pinning PT evaluation. -case management consulted for placement Qualifiers: Encounter type: initial encounter Fracture type: closed Laterality: right Qualified Code(s): S72.001A - Fracture of unspecified part of neck of right femur, initial encounter for closed fracture (2) HTN (hypertension) Onset Date: 06/18/18 Current Visit: Yes Status: Chronic Plan: Currently stable. -Started on Home medication Qualifiers: Hypertension type: essential hypertension Qualified Code(s): I10 - Essential (primary) hypertension (3) Hyperlipidemia Onset Date: 06/18/18 Current Visit: Yes Status: Chronic Plan: Currently stable Qualifiers: Hyperlipidemia type: mixed hyperlipidemia Qualified Code(s): E78.2 - Mixed hyperlipidemia (4) COPD (chronic obstructive pulmonary disease) Onset Date: 06/18/18 Current Visit: Yes Status: Chronic Plan: Nebulizing treatment p.r.n. Qualifiers: COPD type: chronic bronchitis Chronic bronchitis type: mucopurulent Qualified Code(s): J41.1 - Mucopurulent chronic bronchitis - Plan Currently awaiting clinical improvement and PT evaluation at this time. Case management consulted for placement for inpatient rehab versus detention facility Discharge Plan: Other Plan to discharge in: 72 Hours - Code Status/Comfort Care Code Status Assessed: Yes Critical Care: No
[2018-06-18] MEDS: ATORVASTATIN 10 MG TAB PO SCH (21:01)
[2018-06-18] MEDS: ENOXAPARIN 30 MG/0.3 ML SQ SCH (21:01)
[2018-06-19] MEDS: HYDROCODONE/APAP 10/325 TAB PO PRN ×2 (05:16→19:12)
[2018-06-19 06:45] LABS: BUN Blood Urea Nitrogen 9 mg/dL (7-18); Bicarbonate 33 mmol/L (21-32); Glucose Level 102 mg/dL (74-106); Potassium 3.7 mmol/L (3.5-5.1); Sodium Level 134 mmol/L (136-145)
[2018-06-19] MEDS: AMLODIPINE 5 MG TAB PO SCH (09:58)
[2018-06-19] MEDS: ENOXAPARIN 30 MG/0.3 ML SQ SCH ×2 (09:59→21:19)
[2018-06-19] MEDS: CARVEDILOL 12.5 MG TAB PO SCH ×2 (09:59→21:19)
--- NOTE | 2018-06-19 10:28 | PN ---
Date of Progress Note: 06/18/2018 The patient is 1 day status post right bipolar hemiarthroplasty. On seeing her today, her incision i s clean, dry, and intact. Her heels are nontender. She is neurovascularly intact. She has not been up with Physical Therapy yet. She says her pain is manageable. At this time, we anticipate Physica l Therapy to proceed with therapy today with posterior hip precautions, and we will see how she does. We would remove the Mandel as soon as possible. Otherwise, we would start Lovenox today, and all of her questions have otherwise been answered. ALFONSO Voice ID: [id number] Report ID: [id number]
--- NOTE | 2018-06-19 15:51 | P.PN ---
Subjective Date of Service: 06/19/18 Primary Care Provider: Dr Gamez Chief Complaint: Hip fracture Subjective: Improving, Working w/ PT Patient seen and examined at bedside. No family at bedside. Chart reviewed and Case discussed with nursing staff. Patient working with physical therapy, improved activity. No concerns or complaints voiced this morning. Review of Systems 10-point ROS is otherwise unremarkable Physical Examination - Vital Signs Temperature: 98.1 F Blood Pressure: 110/55 Pulse: 87 Respirations: 17 Pulse Ox (%): 90 - Physical Exam General: Alert, In no apparent distress HEENT: Atraumatic, PERRLA, EOMI Neck: Supple, JVD not distended Respiratory: Clear to auscultation bilaterally, Normal air movement Cardiovascular: Regular rate/rhythm, Normal S1 S2 Gastrointestinal: Normal bowel sounds, No tenderness Musculoskeletal: No tenderness Integumentary: No rashes Neurological: Normal speech, Normal tone, Normal affect Lymphatics: No axilla or inguinal lymphadenopathy - Studies Medications List Reviewed: Yes Assessment And Plan - Current Problems (Diagnosis) (1) Hip fracture Onset Date: 06/18/18 Current Visit: Yes Status: Acute Plan: Patient is status post ORIF POD#2. Pain well controlled with medications. Patient was given physical therapy in-house. Disposition options are 1) home with home health/rehab 2) SNF 3) inpatient rehab. Social work on board, working on placement. Will see how patient does with physical therapy tomorrow. Qualifiers: Encounter type: initial encounter Fracture type: closed Laterality: right Qualified Code(s): S72.001A - Fracture of unspecified part of neck of right femur, initial encounter for closed fracture (2) COPD (chronic obstructive pulmonary disease) Onset Date: 06/18/18 Current Visit: Yes Status: Chronic Plan: Nebulizer treatment as needed. Qualifiers: COPD type: chronic bronchitis Chronic bronchitis type: mucopurulent Qualified Code(s): J41.1 - Mucopurulent chronic bronchitis (3) HTN (hypertension) Onset Date: 06/18/18 Current Visit: Yes Status: Chronic Plan: Stable on home medications. Continue Qualifiers: Hypertension type: essential hypertension Qualified Code(s): I10 - Essential (primary) hypertension (4) Hyperlipidemia Onset Date: 06/18/18 Current Visit: Yes Status: Chronic Plan: Stable at this time. Qualifiers: Hyperlipidemia type: mixed hyperlipidemia Qualified Code(s): E78.2 - Mixed hyperlipidemia
[2018-06-19] MEDS: ATORVASTATIN 10 MG TAB PO SCH (21:19)
[2018-06-20] MEDS: HYDROCODONE/APAP 10/325 TAB PO PRN ×2 (05:27→14:00)
[2018-06-20] MEDS ORDERED: POTASSIUM 25 MEQ EFFERV TAB PO ONE (06:40)
[2018-06-20] MEDS: AMLODIPINE 5 MG TAB PO SCH (08:23)
[2018-06-20] MEDS: ENOXAPARIN 30 MG/0.3 ML SQ SCH (08:23)
[2018-06-20] MEDS: CARVEDILOL 12.5 MG TAB PO SCH (08:23)
--- NOTE | 2018-06-20 17:44 | P.DS ---
Admission Date: 06/17/18 Discharge Date: 06/20/18 Primary Care Provider: Dr Gamez Disposition: ROUTINE DISCHARGE Discharge Condition: GOOD Reason for Admission: Hip fracture Consultations: Orthopedic surgeon - Problems (1) Hip fracture Onset Date: 06/18/18 Current Visit: Yes Status: Acute Qualifiers: Encounter type: initial encounter Fracture type: closed Laterality: right Qualified Code(s): S72.001A - Fracture of unspecified part of neck of right femur, initial encounter for closed fracture (2) HTN (hypertension) Onset Date: 06/18/18 Current Visit: Yes Status: Chronic Qualifiers: Hypertension type: essential hypertension Qualified Code(s): I10 - Essential (primary) hypertension (3) Hyperlipidemia Onset Date: 06/18/18 Current Visit: Yes Status: Chronic Qualifiers: Hyperlipidemia type: mixed hyperlipidemia Qualified Code(s): E78.2 - Mixed hyperlipidemia (4) COPD (chronic obstructive pulmonary disease) Onset Date: 06/18/18 Current Visit: Yes Status: Chronic Qualifiers: COPD type: chronic bronchitis Chronic bronchitis type: mucopurulent Qualified Code(s): J41.1 - Mucopurulent chronic bronchitis Brief History of Present Illness: This is a 67-year-old female with significant past medical history of high blood pressure, hyperlipidemia, tobacco abuse, COPD, who presented to the ED after having a fall. Patient stated that she had a fall about 4 days ago when she was out walking her dog. She slipped and fell at the porch. She started having some pain on the right hip but it is thought that it was just a sprain and will go away. Patient started using her walker for the next couple of days and was having progressively worsening pain and thus decided to come to the ER. Patient also had trouble tolerating weight to that area since the fall. Patient has no other complaints to offer. Denies having any fever chills nausea vomiting chest pain or any other associated symptoms at this time Hospital Course: Overall during the hospital stay patient remained stable The patient was admitted to the hospital for right femur neck fracture after she had a fall at the house 4 days ago. Patient was seen by orthopedic surgeon here in the hospital. Patient had ORIF of the right femur neck fracture. Patient tolerated the procedure well and did overall well as well. Initially patient had a physical therapy consult in an effort to transfer patient to inpatient rehab. However patient did exceptionally well and wanted to go home this was discharged home under stable condition with home health PT. Patient demonstrated understanding and thus was discharged home under stable condition. Patient was asked to follow up with orthopedics in 1 about 1-2 days post discharge. Vital Signs/Physical Exam: Temp Pulse Resp BP Pulse Ox 97.5 F 74 18 104/56 L 96 06/20/18 12:00 06/20/18 12:00 06/20/18 12:00 06/20/18 12:00 06/20/18 12:00 General: Alert, In no apparent distress HEENT: Atraumatic, PERRLA, EOMI Neck: Supple, JVD not distended Respiratory: Clear to auscultation bilaterally, Normal air movement Cardiovascular: Regular rate/rhythm, Normal S1 S2 Gastrointestinal: Normal bowel sounds, No tenderness Musculoskeletal: No tenderness Integumentary: No rashes Neurological: Normal speech, Normal tone, Normal affect Lymphatics: No axilla or inguinal lymphadenopathy Laboratory Data at Discharge: WBC 6.3 K/uL (4.3-10.9) D 06/17/18 05:12 Hgb 12.7 g/dL (12.0-15.0) 06/17/18 05:12 Hct 35.2 % (36.0-45.0) L 06/17/18 05:12 Plt Count 234 K/uL (152-406) 06/17/18 05:12 PT 10.7 SECONDS (9.5-12.5) 06/16/18 12:53 INR 0.91 06/16/18 12:53 Sodium 134 mmol/L (136-145) L 06/19/18 05:48 Potassium 3.7 mmol/L (3.5-5.1) 06/19/18 05:48 BUN 9 mg/dL (7-18) 06/19/18 05:48 Creatinine 0.40 mg/dL (0.55-1.3) L 06/19/18 05:48 Glucose 102 mg/dL (74-106) 06/19/18 05:48 Magnesium 2.0 mg/dL (1.8-2.4) 06/16/18 12:53 Total Bilirubin 0.9 mg/dL (0.2-1.0) 06/16/18 12:53 AST 29 U/L (15-37) 06/16/18 12:53 ALT 28 U/L (12-78) 06/16/18 12:53 Alkaline Phosphatase 40 U/L (45-117) L 06/16/18 12:53 Home Medications: Alendronate Sodium [Fosamax] 70 mg PO EVERY 7TH DAY 06/16/18 Amlodipine Besylate [Norvasc] 5 mg PO DAILY 06/16/18 Carvedilol [Coreg*] 12.5 mg PO BID 06/16/18 Pravastatin Sodium [Pravachol] 20 mg PO DAILY 06/16/18 Tramadol HCl [Ultram] 50 mg PO Q6H #20 tablet 06/20/18 New Medications: Tramadol HCl [Ultram] 50 mg PO Q6H #20 tablet Patient Discharge Instructions: Please f.u with PCP and Dr Jones in 1 to 2 weeks post discharge. New medication. Tramadol 50mg q6h for pain Diet: Regular Activity: Ad karen Followup: iPo Jones MD [ACTIVE - CAN ADMIT] - 1 Week (Call for appointment.)
[2018-06-21] MEDS ORDERED: ALENDRONATE 70 MG TAB PO SCH (06:00)
== END 2018-06-20 15:32 | disposition home health service (06) | DRG 470 ==
LOC: ER 10:46 → ERHOLD 14:35 → 2ND 15:34 → OBSVTOIN 06-17 12:27
PROVIDERS: ADMIT Family Medicine; ATTEND Family Medicine
PROC: 0SRR0JZ Replacement of Right Hip Joint, Femoral Surface with Synthetic Substitute, Open Approach (ICD-10-PCS; principal; 2018-06-17 10:00)
DX: S72.001A Fracture of unspecified part of neck of right femur, initial encounter for closed fracture (principal); E87.2 Acidosis; W10.8XXA Fall (on) (from) other stairs and steps, initial encounter; Y93.01 Activity, walking, marching and hiking; Y92.018 Other place in single-family (private) house as the place of occurrence of the external cause; F17.210 Nicotine dependence, cigarettes, uncomplicated; I48.91 Unspecified atrial fibrillation; I10 Essential (primary) hypertension; J41.1 Mucopurulent chronic bronchitis
CPT/HCPCS: 36415; 51702; 71045; 72100; 72170; 80048; 80053; 81003; 82248; 83735; 83880; 84132; 84484; 85025; 85610; 88305; 88311; 90670; 93005; 97163; 99285; G0008; G0009; G0378; J0330; J0690; J1650; J7030; Q2035

== ENCOUNTER → 2023-10-04 | Emergency (ER) | payer OTHER ==
[~2023-10-04] MED LIST: ALBUTEROL 2.5 MG/3 ML NEB SOL ONE; ASPIRIN 81 MG CHEWABLE TABLET ONE; FAMOTIDINE 20 MG/2 ML VIAL IV ONE; HEPARIN 5000 UNIT/ML 1 ML VIAL ONE; HEPARIN/D5W 25,000 UNIT/500 ML BAG IV ONE; IPRATROPIUM BROM 0.5MG/2.5ML ONE; LEVALBUTEROL 1.25 MG/3 ML NEB ONE; METHYLPREDNISOLONE 125 MG INJ ONE; NA CHLORIDE 0.9% 1,000 ML ONE; ONDANSETRON 4 MG/2 ML VIAL ONE; SOD POLYSTYREN SUL 15 GM/60 ML UCUP ONE
--- OUTSIDE RECORDS SUMMARY | 2023-10-04 15:14 | XMS REPORT | Continuity of Care Document ---
Author Name Unknown Address [address] [facility] [place] [address] [facility] Address [address] [facility] [place] [address] Care Team Providers Care Nurse Office Name Role Phone Teri Ashley Attending Clinician Unavailable Vigil, Na L Attending Clinician Unavailable Radiology Attending Clinician Unavailable RADIOLOGY Attending Clinician Unavailable Doctor Unassigned, [place] Attending Clinician U navailable Ellis-Mbayo_A_AH Attending Clinician Unavailable Ellis-Mbayo_A_AH Admitting Clinician Unavailable Payers Payer Name Policy Type Policy Number Effective Date Expirati on Date Source [place] [id number] 2020 00:00:00 [place] [id number] 2020 00:00:00 [facility] [place] [employer] (MEDICARE REPLACEMENT/ADV ANTAGE - HMO) [id number] 2019 00:00:00 Problems Condition Name Condition Details Condition Category Status Onset Date Resolution Date Last Treatment Date Treating Clinician Comments Source [id number] Hypercalce cole Problem [facility] [id number] Age related osteoporos is, unspecifie d pathologic al fracture presence Problem [facility] Tobacco user Cigarette nicotine dependence without complicati on Problem [facility] [id number] Mixed hyperlipid emia Problem [facility] [id number] Primary hypertensi on Problem [facility] [id number] Smoking greater than 40 pack years Problem [facility] [id number] Severe episode of recurrent major depressive disorder, without psychotic features Problem [facility] Allergies, Adverse Reactions, Alerts Allergy Name Allergy Type Status Severity Reaction(s) Onset Date Inactive Date Treating Clinician Comments Source NO KNOWN ALLERGIE S Drug Class Active [facility] Social History Social Habit Start Date Stop Date Quantity Comments Source Exposure to SARS-CoV-2 (event) Not sure [facility] History of Tobacco Use Current Smoker [facility] Sex Assigned At [facility] Tobacco use and exposure 2019-03-26 00:00:00 2019-03-26 00:00:00 Never used [facility] Cigarettes smoked current (pack per day) - Reported 2019-03-26 00:00:00 2019-03-26 00:00:00 [facility] Cigarette pack-years 2019-03-26 00:00:00 2019-03-26 00:00:00 [facility] Alcohol intake 2019-03-26 00:00:00 2019-03-26 00:00:00 Current drinker of alcohol (finding) [facility] Smoking Status Start Date Stop Date Source Current Smoker 2023-09-07 00:00:00 [facility] Medications Ordered Medication Name Filled Medication Name Start Date Stop Date Current Medication? Ordering Clinician Indication Dosage Frequency Signature (SIG) Comments Components Source buPROPion HCl ER (XL) 150 MG buPROPion HCl ER (XL) 150 MG 8 00:00: 00 No 1{table t_in_th e_morni ng} QD buPROPion HCl ER (XL) 150 MG buPROPion HCl ER (XL) 150 MG buPROPion HCl ER (XL) 150 MG 2021- 8- 00:00: 00 No 1{table t_in_th e_morni ng} QD buPROPion HCl ER (XL) 150 MG buPROPion HCl ER (XL) 150 MG buPROPion HCl ER (XL) 150 MG 04-04 00:00: 00 No 1{table t_in_th charity_bruce hong} QD buPROPion HCl ER (XL) 150 MG lisinopril (PRINIVIL,Z ESTRIL) 10 mg tablet 11-29 16:30: 30 Yes 10mg Take 10 mg by mouth daily. [facility] vitamin B-12 (VITAMIN B-12) 1,000 mcg tablet 11-29 16:30: 30 Yes 1000ug Take 1,000 mcg by mouth daily. [facility] pravastatin (PRAVACHOL) 40 mg tablet 11-29 16:30: 30 Yes 40mg Take 40 mg by mouth at bedtime. [facility] lisinopril (PRINIVIL,Z ESTRIL) 10 mg tablet 11-29 16:30: 30 Yes 10mg Take 10 mg by mouth daily. [facility] vitamin B-12 (VITAMIN B-12) 1,000 mcg tablet 11-29 16:30: 30 Yes 1000ug Take 1,000 mcg by mouth daily. [facility] pravastatin (PRAVACHOL) 40 mg tablet 11-29 16:30: 30 Yes 40mg Take 40 mg by mouth at bedtime. [facility] lisinopril (PRINIVIL,Z ESTRIL) 10 mg tablet 11-29 16:30: 30 Yes 10mg Take 10 mg by mouth daily. [facility] vitamin B-12 (VITAMIN B-12) 1,000 mcg tablet 11-29 16:30: 30 Yes 1000ug Take 1,000 mcg by mouth daily. [facility] pravastatin (PRAVACHOL) 40 mg tablet 11-29 16:30: 30 Yes 40mg Take 40 mg by mouth at bedtime. [facility] lisinopril (PRINIVIL,Z ESTRIL) 10 mg tablet 11-29 16:30: 30 Yes 10mg Take 10 mg by mouth daily. [facility] vitamin B-12 (VITAMIN B-12) 1,000 mcg tablet 11-29 16:30: 30 Yes 1000ug Take 1,000 mcg by mouth daily. [facility] pravastatin (PRAVACHOL) 40 mg tablet 11-29 16:30: 30 Yes 40mg Take 40 mg by mouth at bedtime. [facility] carvedilol (COREG) 12.5 mg tablet 11-29 16:29: 45 Yes 12.5mg Take 12.5 mg by mouth 2 (two) times daily with meals. [facility] folic acid (FOLVITE) 400 mcg tablet 11-29 16:29: 45 Yes 400ug Take 400 mcg by mouth daily. [facility] carvedilol (COREG) 12.5 mg tablet 11-29 16:29: 45 Yes 12.5mg Take 12.5 mg by mouth 2 (two) times daily with meals. [facility] folic acid (FOLVITE) 400 mcg tablet 11-29 16:29: 45 Yes 400ug Take 400 mcg by mouth daily. [facility] carvedilol (COREG) 12.5 mg tablet 11-29 16:29: 45 Yes 12.5mg Take 12.5 mg by mouth 2 (two) times daily with meals. [facility] folic acid (FOLVITE) 400 mcg tablet 11-29 16:29: 45 Yes 400ug Take 400 mcg by mouth daily. [facility] carvedilol (COREG) 12.5 mg tablet 11-29 16:29: 45 Yes 12.5mg Take 12.5 mg by mouth 2 (two) times daily with meals. [facility] folic acid (FOLVITE) 400 mcg tablet 11-29 16:29: 45 Yes 400ug Take 400 mcg by mouth daily. [facility] ergocalcife rol, vitamin d2, (VITAMIN D) 50,000 unit capsule 11-29 00:00: 00 Yes [id number] Take 50,000 Units by mouth every 2 (two) weeks. [facility] ibandronate (BONIVA) 150 mg tablet 11-29 00:00: 00 Yes [id number] 150mg Take 1 Tab by mouth once every month. [facility] gabapentin (NEURONTIN) 600 mg tablet 11-29 00:00: 00 Yes 600mg Take 600 mg by mouth 2 (two) times daily. [facility] hydrocodone -acetaminop hen (NORCO 5) 5-325 mg tablet 11-29 00:00: 00 Yes 1{tbl} Take 1 Tab by mouth 2 (two) times daily as needed. [facility] cyclobenzap rine (FLEXERIL) 10 mg tablet 11-29 00:00: 00 Yes 10mg Take 10 mg by mouth at bedtime. [facility] Calcium 600 mg Cap 11-29 00:00: 00 Yes 1{capsu le} Take 1 Cap by mouth daily. [facility] ergocalcife rol, vitamin d2, (VITAMIN D) 50,000 unit capsule 11-29 00:00: 00 Yes [id number] Take 50,000 Units by mouth every 2 (two) weeks. [facility] ibandronate (BONIVA) 150 mg tablet 11-29 00:00: 00 Yes [id number] 150mg Take 1 Tab by mouth once every month. [facility] gabapentin (NEURONTIN) 600 mg tablet 11-29 00:00: 00 Yes 600mg Take 600 mg by mouth 2 (two) times daily. [facility] hydrocodone -acetaminop hen (NORCO 5) 5-325 mg tablet 11-29 00:00: 00 Yes 1{tbl} Take 1 Tab by mouth 2 (two) times daily as needed. [facility] cyclobenzap rine (FLEXERIL) 10 mg tablet 11-29 00:00: 00 Yes 10mg Take 10 mg by mouth at bedtime. [facility] Calcium 600 mg Cap 11-29 00:00: 00 Yes 1{capsu le} Take 1 Cap by mouth daily. [facility] ergocalcife rol, vitamin d2, (VITAMIN D) 50,000 unit capsule 11-29 00:00: 00 Yes [id number] Take 50,000 Units by mouth every 2 (two) weeks. [facility] ibandronate (BONIVA) 150 mg tablet 11-29 00:00: 00 Yes [id number] 150mg Take 1 Tab by mouth once every month. [facility] gabapentin (NEURONTIN) 600 mg tablet 11-29 00:00: 00 Yes 600mg Take 600 mg by mouth 2 (two) times daily. [facility] hydrocodone -acetaminop hen (NORCO 5) 5-325 mg tablet 11-29 00:00: 00 Yes 1{tbl} Take 1 Tab by mouth 2 (two) times daily as needed. [facility] cyclobenzap rine (FLEXERIL) 10 mg tablet 11-29 00:00: 00 Yes 10mg Take 10 mg by mouth at bedtime. [facility] Calcium 600 mg Cap 11-29 00:00: 00 Yes 1{capsu le} Take 1 Cap by mouth daily. [facility] ergocalcife rol, vitamin d2, (VITAMIN D) 50,000 unit capsule 11-29 00:00: 00 Yes [id number] Take 50,000 Units by mouth every 2 (two) weeks. [facility] ibandronate (BONIVA) 150 mg tablet 11-29 00:00: 00 Yes [id number] 150mg Take 1 Tab by mouth once every month. [facility] gabapentin (NEURONTIN) 600 mg tablet 11-29 00:00: 00 Yes 600mg Take 600 mg by mouth 2 (two) times daily. [facility] hydrocodone -acetaminop hen (NORCO 5) 5-325 mg tablet 11-29 00:00: 00 Yes 1{tbl} Take 1 Tab by mouth 2 (two) times daily as needed. [facility] cyclobenzap rine (FLEXERIL) 10 mg tablet 11-29 00:00: 00 Yes 10mg Take 10 mg by mouth at bedtime. [facility] Calcium 600 mg Cap 2011-0 3-28 00:00: 00 Yes 1{capsu le} Take 1 Cap by mouth daily. [facility] amLODIPine Besylate 10 MG amLODIPine Besylate 10 MG No BID amLODIPine Besylate 10 MG Aspirin 81 81 MG Aspirin 81 81 MG No 1{table t} QD Aspirin 81 81 MG Alendronate Sodium 70 MG Alendronate Sodium 70 MG No Alendronat e Sodium 70 MG Centrum Silver - Centrum Silver - No Centrum Silver - Carvedilol 12.5 MG Carvedilol 12.5 MG No Carvedilol 12.5 MG hydroCHLORO thiazide 12.5 MG hydroCHLORO thiazide 12.5 MG No 1{table t_in e_morni ng} QD hydroCHLOR Othiazide 12.5 MG Carvedilol 12.5 MG Carvedilol 12.5 MG No Carvedilol 12.5 MG Pravastatin Sodium 20 MG Pravastatin Sodium 20 MG No Pravastati n Sodium 20 MG hydroCHLORO thiazide 12.5 MG hydroCHLORO thiazide 12.5 MG No hydroCHLOR Othiazide 12.5 MG amLODIPine Besylate 10 MG amLODIPine Besylate 10 MG No amLODIPine Besylate 10 MG amLODIPine Besylate 10 MG amLODIPine Besylate 10 MG No BID amLODIPine Besylate 10 MG Aspirin 81 81 MG Aspirin 81 81 MG No 1{table t} QD Aspirin 81 81 MG Alendronate Sodium 70 MG Alendronate Sodium 70 MG No Alendronat e Sodium 70 MG Centrum Silver - Centrum Silver - No Centrum Silver - Carvedilol 12.5 MG Carvedilol 12.5 MG No Carvedilol 12.5 MG hydroCHLORO thiazide 12.5 MG hydroCHLORO thiazide 12.5 MG No 1{table t_in e_morni ng} QD hydroCHLOR Othiazide 12.5 MG Carvedilol 12.5 MG Carvedilol 12.5 MG No Carvedilol 12.5 MG Pravastatin Sodium 20 MG Pravastatin Sodium 20 MG No Pravastati n Sodium 20 MG hydroCHLORO thiazide 12.5 MG hydroCHLORO thiazide 12.5 MG No hydroCHLOR Othiazide 12.5 MG amLODIPine Besylate 10 MG amLODIPine Besylate 10 MG No amLODIPine Besylate 10 MG amLODIPine Besylate 10 MG amLODIPine Besylate 10 MG No BID amLODIPine Besylate 10 MG Aspirin 81 81 MG Aspirin 81 81 MG No 1{table t} QD Aspirin 81 81 MG Alendronate Sodium 70 MG Alendronate Sodium 70 MG No Alendronat e Sodium 70 MG Centrum Silver - Centrum Silver - No Centrum Silver - Carvedilol 12.5 MG Carvedilol 12.5 MG No Carvedilol 12.5 MG hydroCHLORO thiazide 12.5 MG hydroCHLORO thiazide 12.5 MG No 1{table t_in_th e_morni ng} QD hydroCHLOR Othiazide 12.5 MG Carvedilol 12.5 MG Carvedilol 12.5 MG No Carvedilol 12.5 MG Centrum Silver - Centrum Silver - No Centrum Silver - hydroCHLORO thiazide 12.5 MG hydroCHLORO thiazide 12.5 MG No 1{table t_in_ e_morni ng} QD hydroCHLOR Othiazide 12.5 MG Aspirin 81 81 MG Aspirin 81 81 MG No 1{table t} QD Aspirin 81 81 MG buPROPion HCl ER (XL) 150 MG buPROPion HCl ER (XL) 150 MG No 1{table t_in_ e_morni ng} QD buPROPion HCl ER (XL) 150 MG Carvedilol 12.5 MG Carvedilol 12.5 MG No Carvedilol 12.5 MG Pravastatin Sodium 20 MG Pravastatin Sodium 20 MG No Pravastati n Sodium 20 MG amLODIPine Besylate 10 MG amLODIPine Besylate 10 MG No BID amLODIPine Besylate 10 MG Alendronate Sodium 70 MG Alendronate Sodium 70 MG No Alendronat e Sodium 70 MG buPROPion HCl ER (XL) 150 MG buPROPion HCl ER (XL) 150 MG No buPROPion HCl ER (XL) 150 MG hydroCHLORO thiazide 12.5 MG hydroCHLORO thiazide 12.5 MG No hydroCHLOR Othiazide 12.5 MG Carvedilol 12.5 MG Carvedilol 12.5 MG No Carvedilol 12.5 MG Pravastatin Sodium 20 MG Pravastatin Sodium 20 MG No 1{table t} QD Pravastati n Sodium 20 MG Lisinopril 20 MG Lisinopril 20 MG No Lisinopril 20 MG Aspirin 81 81 MG Aspirin 81 81 MG No 1{table t} QD Aspirin 81 81 MG Lisinopril 20 MG Lisinopril 20 MG No 1{table t} QD Lisinopril 20 MG Alendronate Sodium 70 MG Alendronate Sodium 70 MG No Alendronat e Sodium 70 MG amLODIPine Besylate 10 MG amLODIPine Besylate 10 MG No amLODIPine Besylate 10 MG Centrum Silver - Centrum Silver - No Centrum Silver - buPROPion HCl ER (XL) 150 MG buPROPion HCl ER (XL) 150 MG No buPROPion HCl ER (XL) 150 MG hydroCHLORO thiazide 12.5 MG hydroCHLORO thiazide 12.5 MG No hydroCHLOR Othiazide 12.5 MG Carvedilol 12.5 MG Carvedilol 12.5 MG No Carvedilol 12.5 MG Pravastatin Sodium 20 MG Pravastatin Sodium 20 MG No 1{table t} QD Pravastati n Sodium 20 MG Lisinopril 20 MG Lisinopril 20 MG No Lisinopril 20 MG Aspirin 81 81 MG Aspirin 81 81 MG No 1{table t} QD Aspirin 81 81 MG Lisinopril 20 MG Lisinopril 20 MG No 1{table t} QD Lisinopril 20 MG Alendronate Sodium 70 MG Alendronate Sodium 70 MG No Alendronat e Sodium 70 MG amLODIPine Besylate 10 MG amLODIPine Besylate 10 MG No amLODIPine Besylate 10 MG Centrum Silver - Centrum Silver - No Centrum Silver - buPROPion HCl ER (XL) 150 MG buPROPion HCl ER (XL) 150 MG No buPROPion HCl ER (XL) 150 MG hydroCHLORO thiazide 12.5 MG hydroCHLORO thiazide 12.5 MG No hydroCHLOR Othiazide 12.5 MG Carvedilol 12.5 MG Carvedilol 12.5 MG No Carvedilol 12.5 MG Pravastatin Sodium 20 MG Pravastatin Sodium 20 MG No 1{table t} QD Pravastati n Sodium 20 MG Lisinopril 20 MG Lisinopril 20 MG No Lisinopril 20 MG Aspirin 81 81 MG Aspirin 81 81 MG No 1{table t} QD Aspirin 81 81 MG Lisinopril 20 MG Lisinopril 20 MG No 1{table t} QD Lisinopril 20 MG Alendronate Sodium 70 MG Alendronate Sodium 70 MG No Alendronat e Sodium 70 MG amLODIPine Besylate 10 MG amLODIPine Besylate 10 MG No amLODIPine Besylate 10 MG Centrum Silver - Centrum Silver - No Centrum Silver - buPROPion HCl ER (XL) 150 MG buPROPion HCl ER (XL) 150 MG No buPROPion HCl ER (XL) 150 MG hydroCHLORO thiazide 12.5 MG hydroCHLORO thiazide 12.5 MG No hydroCHLOR Othiazide 12.5 MG Carvedilol 12.5 MG Carvedilol 12.5 MG No Carvedilol 12.5 MG Pravastatin Sodium 20 MG Pravastatin Sodium 20 MG No 1{table t} QD Pravastati n Sodium 20 MG Lisinopril 20 MG Lisinopril 20 MG No Lisinopril 20 MG Aspirin 81 81 MG Aspirin 81 81 MG No 1{table t} QD Aspirin 81 81 MG Lisinopril 20 MG Lisinopril 20 MG No 1{table t} QD Lisinopril 20 MG Alendronate Sodium 70 MG Alendronate Sodium 70 MG No Alendronat e Sodium 70 MG amLODIPine Besylate 10 MG amLODIPine Besylate 10 MG No amLODIPine Besylate 10 MG Centrum Silver - Centrum Silver - No Centrum Silver - buPROPion HCl ER (XL) 150 MG buPROPion HCl ER (XL) 150 MG No buPROPion HCl ER (XL) 150 MG hydroCHLORO thiazide 12.5 MG hydroCHLORO thiazide 12.5 MG No hydroCHLOR Othiazide 12.5 MG Carvedilol 12.5 MG Carvedilol 12.5 MG No Carvedilol 12.5 MG Lisinopril 20 MG Lisinopril 20 MG No Lisinopril 20 MG amLODIPine Besylate 10 MG amLODIPine Besylate 10 MG No amLODIPine Besylate 10 MG Aspirin 81 81 MG Aspirin 81 81 MG No 1{table t} QD Aspirin 81 81 MG Pravastatin Sodium 20 MG Pravastatin Sodium 20 MG No Pravastati n Sodium 20 MG Alendronate Sodium 70 MG Alendronate Sodium 70 MG No Alendronat e Sodium 70 MG Lisinopril 20 MG Lisinopril 20 MG No 1{table t} QD Lisinopril 20 MG Centrum Silver - Centrum Silver - No Centrum Silver - hydroCHLORO thiazide 12.5 MG hydroCHLORO thiazide 12.5 MG No 1{table t_in_th e_morni ng} QD hydroCHLOR Othiazide 12.5 MG Alendronate Sodium 70 MG Alendronate Sodium 70 MG No Alendronat e Sodium 70 MG amLODIPine Besylate 10 MG amLODIPine Besylate 10 MG No 1{table t} QD amLODIPine Besylate 10 MG Carvedilol 12.5 MG Carvedilol 12.5 MG No Carvedilol 12.5 MG Pravastatin Sodium 20 MG Pravastatin Sodium 20 MG No Pravastati n Sodium 20 MG Centrum Silver - Centrum Silver - No Centrum Silver - Lisinopril 20 MG Lisinopril 20 MG No 1{table t} QD Lisinopril 20 MG buPROPion HCl ER (XL) 150 MG buPROPion HCl ER (XL) 150 MG No 1{table t_in_th e_morni ng} BID buPROPion HCl ER (XL) 150 MG Aspirin 81 81 MG Aspirin 81 81 MG No 1{table t} QD Aspirin 81 81 MG hydroCHLORO thiazide 12.5 MG hydroCHLORO thiazide 12.5 MG No 1{table t_in_ e_morni ng} QD hydroCHLOR Othiazide 12.5 MG Alendronate Sodium 70 MG Alendronate Sodium 70 MG No Alendronat e Sodium 70 MG amLODIPine Besylate 10 MG amLODIPine Besylate 10 MG No 1{table t} QD amLODIPine Besylate 10 MG Carvedilol 12.5 MG Carvedilol 12.5 MG No Carvedilol 12.5 MG Pravastatin Sodium 20 MG Pravastatin Sodium 20 MG No Pravastati n Sodium 20 MG Centrum Silver - Centrum Silver - No Centrum Silver - Lisinopril 20 MG Lisinopril 20 MG No 1{table t} QD Lisinopril 20 MG buPROPion HCl ER (XL) 150 MG buPROPion HCl ER (XL) 150 MG No 1{table t_in_ e_morni ng} BID buPROPion HCl ER (XL) 150 MG Aspirin 81 81 MG Aspirin 81 81 MG No 1{table t} QD Aspirin 81 81 MG hydroCHLORO thiazide 12.5 MG hydroCHLORO thiazide 12.5 MG No 1{table t_in_ e_morni ng} QD hydroCHLOR Othiazide 12.5 MG Alendronate Sodium 70 MG Alendronate Sodium 70 MG No Alendronat e Sodium 70 MG amLODIPine Besylate 10 MG amLODIPine Besylate 10 MG No 1{table t} QD amLODIPine Besylate 10 MG Carvedilol 12.5 MG Carvedilol 12.5 MG No Carvedilol 12.5 MG Pravastatin Sodium 20 MG Pravastatin Sodium 20 MG No Pravastati n Sodium 20 MG Centrum Silver - Centrum Silver - No Centrum Silver - Lisinopril 20 MG Lisinopril 20 MG No 1{table t} QD Lisinopril 20 MG buPROPion HCl ER (XL) 150 MG buPROPion HCl ER (XL) 150 MG No 1{table t_in e_morni ng} BID buPROPion HCl ER (XL) 150 MG Aspirin 81 81 MG Aspirin 81 81 MG No 1{table t} QD Aspirin 81 81 MG buPROPion HCl ER (XL) 150 MG buPROPion HCl ER (XL) 150 MG No 1{table t_in e_morni ng} BID buPROPion HCl ER (XL) 150 MG amLODIPine Besylate 10 MG amLODIPine Besylate 10 MG No 1{table t} QD amLODIPine Besylate 10 MG Alendronate Sodium 70 MG Alendronate Sodium 70 MG No Alendronat e Sodium 70 MG Aspirin 81 81 MG Aspirin 81 81 MG No 1{table t} QD Aspirin 81 81 MG Carvedilol 12.5 MG Carvedilol 12.5 MG No Carvedilol 12.5 MG Lisinopril 20 MG Lisinopril 20 MG No 1{table t} QD Lisinopril 20 MG hydroCHLORO thiazide 12.5 MG hydroCHLORO thiazide 12.5 MG No 1{table t_in e_morni ng} QD hydroCHLOR Othiazide 12.5 MG Centrum Silver - Centrum Silver - No Centrum Silver - Pravastatin Sodium 20 MG Pravastatin Sodium 20 MG No Pravastati n Sodium 20 MG Pravastatin Sodium 20 MG Pravastatin Sodium 20 MG No Pravastati n Sodium 20 MG buPROPion HCl ER (XL) 150 MG buPROPion HCl ER (XL) 150 MG No 1{table t_in e_morni ng} BID buPROPion HCl ER (XL) 150 MG amLODIPine Besylate 10 MG amLODIPine Besylate 10 MG No 1{table t} QD amLODIPine Besylate 10 MG Alendronate Sodium 70 MG Alendronate Sodium 70 MG No Alendronat e Sodium 70 MG Aspirin 81 81 MG Aspirin 81 81 MG No 1{table t} QD Aspirin 81 81 MG Carvedilol 12.5 MG Carvedilol 12.5 MG No Carvedilol 12.5 MG Lisinopril 20 MG Lisinopril 20 MG No 1{table t} QD Lisinopril 20 MG hydroCHLORO thiazide 12.5 MG hydroCHLORO thiazide 12.5 MG No 1{table t_in e_morni ng} QD hydroCHLOR Othiazide 12.5 MG Centrum Silver - Centrum Silver - No Centrum Silver - Pravastatin Sodium 20 MG Pravastatin Sodium 20 MG No Pravastati n Sodium 20 MG Meloxicam 15 MG Meloxicam 15 MG No Meloxicam 15 MG Alendronate Sodium 70 MG Alendronate Sodium 70 MG No Alendronat e Sodium 70 MG buPROPion HCl ER (XL) 150 MG buPROPion HCl ER (XL) 150 MG No 1{table t_in e_morni ng} BID buPROPion HCl ER (XL) 150 MG amLODIPine Besylate 10 MG amLODIPine Besylate 10 MG No 1{table t} QD amLODIPine Besylate 10 MG Alendronate Sodium 70 MG Alendronate Sodium 70 MG No Alendronat e Sodium 70 MG Aspirin 81 81 MG Aspirin 81 81 MG No 1{table t} QD Aspirin 81 81 MG Carvedilol 12.5 MG Carvedilol 12.5 MG No Carvedilol 12.5 MG Lisinopril 20 MG Lisinopril 20 MG No 1{table t} QD Lisinopril 20 MG hydroCHLORO thiazide 12.5 MG hydroCHLORO thiazide 12.5 MG No 1{table t_in e_morni ng} QD hydroCHLOR Othiazide 12.5 MG Centrum Silver - Centrum Silver - No Centrum Silver - Pravastatin Sodium 20 MG Pravastatin Sodium 20 MG No Pravastati n Sodium 20 MG hydroCHLORO thiazide 12.5 MG hydroCHLORO thiazide 12.5 MG No 1{table t_in e_morni ng} QD hydroCHLOR Othiazide 12.5 MG buPROPion HCl ER (XL) 150 MG buPROPion HCl ER (XL) 150 MG No 1{table t_in e_morni ng} BID buPROPion HCl ER (XL) 150 MG amLODIPine Besylate 10 MG amLODIPine Besylate 10 MG No 1{table t} QD amLODIPine Besylate 10 MG Alendronate Sodium 70 MG Alendronate Sodium 70 MG No Alendronat e Sodium 70 MG Aspirin 81 81 MG Aspirin 81 81 MG No 1{table t} QD Aspirin 81 81 MG Carvedilol 12.5 MG Carvedilol 12.5 MG No Carvedilol 12.5 MG Lisinopril 20 MG Lisinopril 20 MG No 1{table t} QD Lisinopril 20 MG hydroCHLORO thiazide 12.5 MG hydroCHLORO thiazide 12.5 MG No 1{table t_in e_morni ng} QD hydroCHLOR Othiazide 12.5 MG Centrum Silver - Centrum Silver - No Centrum Silver - Carvedilol 12.5 MG Carvedilol 12.5 MG No Carvedilol 12.5 MG Pravastatin Sodium 20 MG Pravastatin Sodium 20 MG No Pravastati n Sodium 20 MG amLODIPine Besylate 10 MG amLODIPine Besylate 10 MG No BID amLODIPine Besylate 10 MG Pravastatin Sodium 20 MG Pravastatin Sodium 20 MG No Pravastati n Sodium 20 MG Meloxicam 15 MG Meloxicam 15 MG No Meloxicam 15 MG Alendronate Sodium 70 MG Alendronate Sodium 70 MG No Alendronat e Sodium 70 MG hydroCHLORO thiazide 12.5 MG hydroCHLORO thiazide 12.5 MG No 1{table t_in e_morni ng} QD hydroCHLOR Othiazide 12.5 MG Carvedilol 12.5 MG Carvedilol 12.5 MG No Carvedilol 12.5 MG amLODIPine Besylate 10 MG amLODIPine Besylate 10 MG No BID amLODIPine Besylate 10 MG Alendronate Sodium 70 MG Alendronate Sodium 70 MG No Alendronat e Sodium 70 MG amLODIPine Besylate 10 MG amLODIPine Besylate 10 MG No amLODIPine Besylate 10 MG hydroCHLORO thiazide 12.5 MG hydroCHLORO thiazide 12.5 MG No hydroCHLOR Othiazide 12.5 MG hydroCHLORO thiazide 12.5 MG hydroCHLORO thiazide 12.5 MG No 1{table t_in e_morni ng} QD hydroCHLOR Othiazide 12.5 MG Carvedilol 12.5 MG Carvedilol 12.5 MG No Carvedilol 12.5 MG Meloxicam 15 MG Meloxicam 15 MG No Meloxicam 15 MG Carvedilol 12.5 MG Carvedilol 12.5 MG No Carvedilol 12.5 MG Alendronate Sodium 70 MG Alendronate Sodium 70 MG No Alendronat e Sodium 70 MG amLODIPine Besylate 10 MG amLODIPine Besylate 10 MG No BID amLODIPine Besylate 10 MG Pravastatin Sodium 20 MG Pravastatin Sodium 20 MG No Pravastati n Sodium 20 MG Pravastatin Sodium 20 MG Pravastatin Sodium 20 MG No Pravastati n Sodium 20 MG hydroCHLORO thiazide 12.5 MG hydroCHLORO thiazide 12.5 MG No hydroCHLOR Othiazide 12.5 MG amLODIPine Besylate 10 MG amLODIPine Besylate 10 MG No amLODIPine Besylate 10 MG Vital Signs Vital Name Observation Time Observation Value Comments S traceece height 2023-09-07 13:30:00 63 [in_i] Commo n [facility] weight 2023-09-07 13:30:00 74.8 [lb_av] Com [facility] temperature 2023-09-07 13:30:00 98.6 [degF] Com [facility] bmi 2023-09-07 13:30:00 13.25 kg/m2 Comm on [facility] oximetry 2023-09-07 13:30:00 94 % Commo n [facility] respiratory rate 2023-09-07 13:30:00 18 /min [facility] blood pressure systolic 2023-09-07 13:30:00 110 mm[Hg] [facility] blood pressure diastolic 2023-09-07 13:30:00 60 mm[Hg] [facility] height 2023-08-04 13:00:00 63 [in_i] Commo n [facility] weight 2023-08-04 13:00:00 77.8 [lb_av] Com [facility] temperature 2023-08-04 13:00:00 97.0 [degF] Com [facility] bmi 2023-08-04 13:00:00 13.78 kg/m2 Comm on [facility] oximetry 2023-08-04 13:00:00 92 % Commo n [facility] respiratory rate 2023-08-04 13:00:00 16 /min [facility] blood pressure systolic 2023-08-04 13:00:00 106 mm[Hg] [facility] blood pressure diastolic 2023-08-04 13:00:00 58 mm[Hg] [facility] height 2023-05-01 08:40:00 63 [in_i] Commo n [facility] weight 2023-05-01 08:40:00 79.8 [lb_av] Com [facility] temperature 2023-05-01 08:40:00 98.7 [degF] Com [facility] bmi 2023-05-01 08:40:00 14.13 kg/m2 Comm on [facility] oximetry 2023-05-01 08:40:00 92 % Commo n [facility] respiratory rate 2023-05-01 08:40:00 16 /min [facility] blood pressure systolic 2023-05-01 08:40:00 99 mm[Hg] Common [facility] blood pressure diastolic 2023-05-01 08:40:00 49 mm[Hg] [facility] height 2023-05-01 09:40:00 63 [in_i] Commo n [facility] weight 2023-05-01 09:40:00 79.8 [lb_av] Com [facility] temperature 2023-05-01 09:40:00 98.7 [degF] Com [facility] bmi 2023-05-01 09:40:00 14.13 kg/m2 Comm on [facility] oximetry 2023-05-01 09:40:00 92 % Commo n [facility] respiratory rate 2023-05-01 09:40:00 16 /min Common [facility] blood pressure systolic 2023-05-01 09:40:00 99 mm[Hg] [facility] blood pressure diastolic 2023-05-01 09:40:00 49 mm[Hg] [facility] height 2023-01-10 09:20:00 63 [in_i] Commo n [facility] weight 2023-01-10 09:20:00 80 [lb_av] Commo n [facility] temperature 2023-01-10 09:20:00 98.0 [degF] Com [facility] bmi 2023-01-10 09:20:00 14.17 kg/m2 Comm on [facility] oximetry 2023-01-10 09:20:00 94 % Commo n [facility] respiratory rate 2023-01-10 09:20:00 17 /min [facility] blood pressure systolic 2023-01-10 09:20:00 132 mm[Hg] [facility] blood pressure diastolic 2023-01-10 09:20:00 76 mm[Hg] Common [facility] height 2022-12-06 09:00:00 63 [in_i] Commo n [facility] weight 2022-12-06 09:00:00 84.4 [lb_av] Com [facility] temperature 2022-12-06 09:00:00 97.9 [degF] Com [facility] bmi 2022-12-06 09:00:00 14.95 kg/m2 Comm on [facility] oximetry 2022-12-06 09:00:00 92 % Commo n [facility] respiratory rate 2022-12-06 09:00:00 17 /min [facility] blood pressure systolic 2022-12-06 09:00:00 166 mm[Hg] [facility] blood pressure diastolic 2022-12-06 09:00:00 94 mm[Hg] Common [facility] height 2022-08-04 08:20:00 63 [in_i] Commo n [facility] weight 2022-08-04 08:20:00 79.0 [lb_av] Com [facility] temperature 2022-08-04 08:20:00 97.0 [degF] Com [facility] bmi 2022-08-04 08:20:00 13.99 kg/m2 Comm on [facility] oximetry 2022-08-04 08:20:00 95 % Commo n [facility] respiratory rate 2022-08-04 08:20:00 15 /min [facility] blood pressure systolic 2022-08-04 08:20:00 106 mm[Hg] Common [facility] blood pressure diastolic 2022-08-04 08:20:00 51 mm[Hg] [facility] height 2022-04-04 13:00:00 64.00 [in_i] Com [facility] weight 2022-04-04 13:00:00 82 [lb_av] Commo n [facility] temperature 2022-04-04 13:00:00 97.8 [degF] Com [facility] bmi 2022-04-04 13:00:00 14.07 kg/m2 Comm on [facility] oximetry 2022-04-04 13:00:00 93 % Commo n [facility] respiratory rate 2022-04-04 13:00:00 20 /min [facility] blood pressure systolic 2022-04-04 13:00:00 120 mm[Hg] [facility] blood pressure diastolic 2022-04-04 13:00:00 82 mm[Hg] Common [facility] height 2022-04-04 13:20:00 63 [in_i] Commo n [facility] weight 2022-04-04 13:20:00 82 [lb_av] Commo n [facility] temperature 2022-04-04 13:20:00 97.8 [degF] Com [facility] bmi 2022-04-04 13:20:00 14.52 kg/m2 Comm on [facility] oximetry 2022-04-04 13:20:00 93 % Commo n [facility] respiratory rate 2022-04-04 13:20:00 20 /min [facility] blood pressure systolic 2022-04-04 13:20:00 120 mm[Hg] Common [facility] blood pressure diastolic 2022-04-04 13:20:00 82 mm[Hg] [facility] height 2021-11-02 08:20:00 64.00 [in_i] Com [facility] weight 2021-11-02 08:20:00 85.2 [lb_av] Com [facility] temperature 2021-11-02 08:20:00 97.3 [degF] Com [facility] bmi 2021-11-02 08:20:00 14.62 kg/m2 Comm on [facility] oximetry 2021-11-02 08:20:00 90 % Commo n [facility] respiratory rate 2021-11-02 08:20:00 16 /min [facility] blood pressure systolic 2021-11-02 08:20:00 126 mm[Hg] Common [facility]iri [facility] blood pressure diastolic 2021-11-02 08:20:00 62 mm[Hg] [facility] height 2021-07-06 08:40:00 64.00 [in_i] Com [facility] weight 2021-07-06 08:40:00 83.2 [lb_av] Com [facility] temperature 2021-07-06 08:40:00 97.6 [degF] Com [facility] bmi 2021-07-06 08:40:00 14.28 kg/m2 Comm on [facility] oximetry 2021-07-06 08:40:00 92 % Commo n [facility] respiratory rate 2021-07-06 08:40:00 16 /min [facility] blood pressure systolic 2021-07-06 08:40:00 138 mm[Hg] [facility] blood pressure diastolic 2021-07-06 08:40:00 85 mm[Hg] [facility] height 2021-07-06 08:40:00 64.00 [in_i] Com [facility] weight 2021-07-06 08:40:00 83.2 [lb_av] Com [facility] temperature 2021-07-06 08:40:00 97.6 [degF] Com [facility] bmi 2021-07-06 08:40:00 14.28 kg/m2 Comm on [facility] oximetry 2021-07-06 08:40:00 92 % Commo n [facility] respiratory rate 2021-07-06 08:40:00 16 /min [facility] blood pressure systolic 2021-07-06 08:40:00 138 mm[Hg] [facility] blood pressure diastolic 2021-07-06 08:40:00 85 mm[Hg] [facility] Procedures Procedure Date / Time Performed Performing Clinician Source BI SELF-REFERRED SCREENING TOMOSYNTHESIS BILATERAL 2020-04-16 18:35:37 Requisition, Paper [facility] ASSIGNMENT OF BENEFITS 2020-04-16 17:54:21 Docto r Unassigned, [place] [facility] BI ULTRASOUND BREAST LIMITED RIGHT 2019-04-24 14:43:43 Requisition, Paper [facility] ASSIGNMENT OF BENEFITS 2019-04-24 13:50:25 Docto r Unassigned, [place] [facility] Encounters Start Date/Time End Date/Time Encounter Type Admission Type Attending [facility] Care Department Encounter ID Source 2023-08-04 12:46:00 Outpatient Teri Ashley STLMLC ST[facility] [id number] [facility] 2023-07-25 13:24:00 Outpatient Teri Ashley STLMLC STLMLC [id number] [facility] 2022-12-05 08:27:01 Outpatient Teri Ashley STLMLC STLMLC [id number] [facility] 2022-09-26 08:41:02 Outpatient Teri Ashley STLMLC STLMLC [id number] [facility] 2022-08-03 10:43:02 Outpatient Vigil, Na STLMLC STLMLC [id number] [facility] 2022-06-02 08:43:02 Outpatient Vigil, Na STLMLC STLMLC [id number] [facility] 2022-04-08 14:34:01 Outpatient Vigil, Na STLMLC STLMLC [id number] [facility] 2021-10-29 09:52:04 Outpatient Vigil, Na STLMLC STLMLC [id number] [facility] 2021-09-29 13:38:58 Outpatient Vigil, Na STLMLC STLMLC [id number] [facility] 2021-09-29 13:24:35 Outpatient Vigil, Na STLMLC STLMLC [id number] [facility] 2023-09-07 00:00:00 2023-09-07 00:00:00 OFFICE VISIT NEW PT LEVEL 3 STLMLC STLMLC [id number] [facility] 2023-08-07 00:00:00 2023-08-07 00:00:00 (TEL) STLMLC STLMLC [id number] [facility] 2023-08-04 00:00:00 2023-08-04 00:00:00 OFFICE VISIT ESTAB PT LEVEL 4 STLMLC STLMLC [id number] [facility] 2023-07-31 00:00:00 2023-07-31 00:00:00 (TEL) STLMLC STLMLC [id number] [facility] 2023-05-01 00:00:00 2023-05-01 00:00:00 SUB ANNUAL [facility] WELLNESS VISIT STLMLC STLMLC [id number] [facility] 2023-05-01 00:00:00 2023-05-01 00:00:00 OFFICE VISIT ESTAB PT LEVEL 4 STLMLC STLMLC [id number] [facility] 2023-03-13 00:00:00 2023-03-13 00:00:00 (TEL) STLMLC STLMLC [id number] [facility] 2023-01-10 00:00:00 2023-01-10 00:00:00 OFFICE VISIT ESTAB PT LEVEL 4 STLMLC STLMLC [id number] [facility] 2022-12-06 00:00:00 2022-12-06 00:00:00 OFFICE VISIT ESTAB PT LEVEL 4 STLMLC STLMLC [id number] [facility] 2022-11-30 00:00:00 2022-11-30 00:00:00 (TEL) STLMLC STLMLC [id number] [facility] 2022-10-27 00:00:00 2022-10-27 00:00:00 (TEL) STLMLC STLMLC [id number] [facility] 2022-10-27 00:00:00 2022-10-27 00:00:00 (TEL) STLMLC STLMLC [id number] [facility] 2022-08-04 00:00:00 2022-08-04 00:00:00 OFFICE VISIT EST PT LEVEL 3 STLMLC STLMLC [id number] [facility] 2022-05-04 00:00:00 2022-05-04 00:00:00 (TEL) STLMLC STLMLC [id number] [facility] 2022-04-04 00:00:00 2022-04-04 00:00:00 SUB ANNUAL [facility] WELLNESS VISIT STLMLC STLMLC [id number] [facility] 2022-04-04 00:00:00 2022-04-04 00:00:00 OFFICE VISIT EST PT LEVEL 3 STLMLC STLMLC [id number] [facility] 2021-11-02 00:00:00 2021-11-02 00:00:00 OFFICE VISIT EST PT LEVEL 3 STLMLC STLMLC [id number] [facility] 2021-07-06 00:00:00 2021-07-06 00:00:00 SUB ANNUAL [facility] WELLNESS VISIT STLMLC STLMLC [id number] [facility] 2021-07-06 00:00:00 2021-07-06 00:00:00 OFFICE VISIT EST PT LEVEL 3 STLMLC STLMLC [id number] [facility] 2021-04-20 00:00:00 2021-04-20 00:00:00 Outpatient STLMLC STLMLC [id number] [facility] 2021-03-15 00:00:00 2021-03-15 00:00:00 Outpatient STLMLC STLMLC [id number] [facility] 2020-04-16 12:55:06 2020-04-16 23:59:00 Hospital Encounter Radiology [facility] [id number] [facility] 2020-04-16 00:00:00 2020-04-16 00:00:[address] [facility] [id number] [facility] 2020-04-16 00:00:00 2020-04-16 00:00:00 Orders Only Doctor Unassigned, [place] [facility] [id number] [facility] 2019-10-31 04:38:00 2019-10-31 04:38:00 Outpatient [facility] _A_AH VFP VFP [id number] [facility] 2019-10-31 04:38:00 2019-10-31 04:38:00 Outpatient Ellis-Mbayo _A_AH VFP VFP [id number] [facility] 2019-10-31 04:38:00 2019-10-31 04:38:00 Outpatient Ellis-Mbayo _A_AH VFP VFP [id number] [facility] 2019-10-31 04:38:00 2019-10-31 04:38:00 Outpatient Ellis-Mbayo _A_AH VFP VFP [id number] [facility] 2019-04-24 09:00:00 2019-04-24 23:59:00 Hospital Encounter Radiology [facility] [id number] [facility] 2019-04-24 00:00:00 2019-04-24 00:00:00 Orders Only Doctor Unassigned, [place] [facility] [id number] [facility] Results Test Description Test Time Test Comments Results Result Co mments Source MICROSCOPIC [id number] 00:00:00* Test Item Value Reference Range Interpretation Comme nts BACTERIA (test code = 32417-0) 1+ NONE SEEN A CASTS, HYALINE (test code = 58410-6) TRACE NONE-TRACE EPITHELIAL CELLS (test code = 02366-0) 6-10 /HPF See_Comment [Automated messa ge] The system which generated this result transmitted reference range: 0-10 /HPF. The reference range was not used to interpret this result as normal/abnormal. RED BLOOD CELLS (test code = 13714-0) 0-2 /HPF See_Comment [Automated [employer]] The system which generated this result transmitted reference range: 0-2 /HPF. The reference range was not used to interpret this result as normal/abnormal. WHITE BLOOD CELLS (test code = 43578-6) 6-10 /HPF See_Comment A [Automated message] The system which generated this result transmitted reference range: 0-5 /HPF. The reference range was not used to interpret this result as normal/abnormal. HEMOGLOBIN [id number] 00:00:00* Test Item Value Reference Range Interpretation [facility] HEMOGLOBIN A1c (test code = 4548-4) 6.1 % See_Comment H [Automated [employer]] The system which generated this result transmitted reference range: 4.2-5.6 %. The reference range was not used to interpret this result as normal/abnormal. TSH RFLX FT4 AND [id number] 00:00:00* Test Item Value Reference Range Interpretation [facility] TSH RFLX FT4 AND FT3 (test code = 11007-2) 2.110 UIU/ML See_Comment [Automated [employer]] The system which generated this result transmitted reference range: 0.400-4.100 UIU/ML. The reference range was not used to interpret this result as normal/abnormal. VITAMIN D,1,91-[id number] 00:00:00* Test Item Value Reference Range Interpretation [facility] VITAMIN D,1,25-DIHYDROXY (test code = 1649-3) 25.8 PG/ML See_Comment [Automated message] The system which generated this result transmitted reference range: 20.0-82.0 PG/ML. The reference range was not used to interpret this result as normal/abnormal. CULTURE, [id number] 00:00:00* Test Item Value Reference Range Interpretation [facility] CULTURE, URINE (test code = 630-4) SPECIMEN NUMBER: [id number] LIPID PANEL WITH REFLEX DIRECT [id number] 00:00:00* Test Item Value Reference Range Interpretation [facility] CALC LDL CHOL (test code = 31218-7) 92 MG/DL See_Comment [Automated [employer]] The system which generated this result transmitted reference range: <100 MG/DL. The reference range was not used to interpret this result as normal/abnormal. CHOLESTEROL (test code = 2093-3) 169 MG/DL See_Comment [Automated [employer]] The system which generated this result transmitted reference range: <200 MG/DL. The reference range was not used to interpret this result as normal/abnormal. HDL CHOLESTEROL (test code = 2085-9) 59 MG/DL See_Comment [Automated [employer]] The system which generated this result transmitted reference range: >39 MG/DL. The reference range was not used to interpret this result as normal/abnormal. RISK RATIO LDL/HDL (test code = 16179-8) 1.56 RATIO See_Comment [Automated message] The system which generated this result transmitted reference range: <3.22 RATIO. The reference range was not used to interpret this result as normal/abnormal. TRIGLYCERIDES (test code = 2571-8) 89 MG/DL See_Comment [Automated [employer]] The system which generated this result transmitted reference range: <150 MG/DL. The reference range was not used to interpret this result as normal/abnormal. COMPREHENSIVE METABOLIC [id number] 00:00:00* Test Item Value Reference Range Interpretation Comme nts ALBUMIN (test code = 1751-7) 5.2 G/DL See_Comment [Automated [employer]] The system which generated this result transmitted reference range: 3.5-5.2 G/DL. The reference range was not used to interpret this result as normal/abnormal. ALKALINE PHOSPHATASE (test code = 6768-6) 55 U/L See_Comment [Automated message] The system which generated this result transmitted reference range: 40-142 U/L. The reference range was not used to interpret this result as normal/abnormal. BILIRUBIN, TOTAL (test code = 1975-2) 0.3 MG/DL See_Comment [Automated message] The system which generated this result transmitted reference range: <=1.2 MG/DL. The reference range was not used to interpret this result as normal/abnormal. BUN (test code = 3094-0) 31 MG/DL See_Comment H [Automated [employer]] The system which generated this result transmitted reference range: 8-23 MG/DL. The reference range was not used to interpret this result as normal/abnormal. CALCIUM (test code = 77339-7) 10.8 MG/DL See_Comment H [Automated messa ge] The system which generated this result transmitted reference range: 8.5-10.5 MG/DL. The reference range was not used to interpret this result as normal/abnormal. CALC A/G RATIO (test code = 1759-0) 1.8 RATIO See_Comment [Automated messa ge] The system which generated this result transmitted reference range: 1.0-2.6 RATIO. The reference range was not used to interpret this result as normal/abnormal. CALC BUN/CREAT (test code = 3097-3) 24 RATIO See_Comment [Automated messa ge] The system which generated this result transmitted reference range: 6-28 RATIO. The reference range was not used to interpret this result as normal/abnormal. CALC GLOBULIN (test code = 98980-9) 2.9 G/DL See_Comment [Automated messa ge] The system which generated this result transmitted reference range: 1.9-3.7 G/DL. The reference range was not used to interpret this result as normal/abnormal. CARBON DIOXIDE (test code = 1963-8) 27 MEQ/L See_Comment [Automated messa ge] The system which generated this result transmitted reference range: 19-31 MEQ/L. The reference range was not used to interpret this result as normal/abnormal. CHLORIDE (test code = 2075-0) 101 MEQ/L See_Comment [Automated messa ge] The system which generated this result transmitted reference range: 95-107 MEQ/L. The reference range was not used to interpret this result as normal/abnormal. CREATININE (test code = 2160-0) 1.27 MG/DL See_Comment [Automated messa ge] The system which generated this result transmitted reference range: 0.60-1.30 MG/DL. The reference range was not used to interpret this result as normal/abnormal. eGFR (2020 CKD-EPI) (test code = 97003-6) 45 ML/MIN/1.73 See_Comment L [Automated messa ge] The system which generated this result transmitted reference range: >60 ML/MIN/1.73. The reference range was not used to interpret this result as normal/abnormal. GLUCOSE (test code = 1558-6) 154 MG/DL See_Comment H [Automated messa ge] The system which generated this result transmitted reference range: 70-99 MG/DL. The reference range was not used to interpret this result as normal/abnormal. POTASSIUM (test code = 2823-3) 5.6 MEQ/L See_Comment H [Automated messa ge] The system which generated this result transmitted reference range: 3.5-5.4 MEQ/L. The reference range was not used to interpret this result as normal/abnormal. PROTEIN, TOTAL (test code = 2885-2) 8.1 G/DL See_Comment [Automated messa ge] The system which generated this result transmitted reference range: 6.1-8.3 G/DL. The reference range was not used to interpret this result as normal/abnormal. AST (test code = 1920-8) 23 U/L See_Comment [Automated messa ge] The system which generated this result transmitted reference range: 9-40 U/L. The reference range was not used to interpret this result as normal/abnormal. ALT (test code = 1742-6) 21 U/L See_Comment [Automated messa ge] The system which generated this result transmitted reference range: 5-40 U/L. The reference range was not used to interpret this result as normal/abnormal. SODIUM (test code = 2951-2) 143 MEQ/L See_Comment [Automated messa ge] The system which generated this result transmitted reference range: 133-146 MEQ/L. The reference range was not used to interpret this result as normal/abnormal. HEMOGLOBIN [id number] 00:00:00* Test Item Value Reference Range Interpretation Comme [facility] HEMOGLOBIN A1c (test code = 4548-4) 5.8 % See_Comment H [Automated messa ge] The system which generated this result transmitted reference range: 4.2-5.6 %. The reference range was not used to interpret this result as normal/abnormal. PTH, INTACT, WITH CALCIUM, PHOSPHORUS, [id number] 00:00:00* Test Item Value Reference Range Interpretation Comme [facility] CALCIUM (test code = 26056-7) 10.0 MG/DL See_Comment [Automated messa ge] The system which generated this result transmitted reference range: 8.5-10.5 MG/DL. The reference range was not used to interpret this result as normal/abnormal. CREATININE (test code = 2160-0) 1.48 MG/DL See_Comment H [Automated [employer]] The system which generated this result transmitted reference range: 0.60-1.30 MG/DL. The reference range was not used to interpret this result as normal/abnormal. eGFR (2020 CKD-EPI) (test code = 40207-1) 38 ML/MIN/1.73 See_Comment L [Automated [employer]] The system which generated this result transmitted reference range: >60 ML/MIN/1.73. The reference range was not used to interpret this result as normal/abnormal. INTACT PTH (test code = 2731-8) 34 PG/ML See_Comment [Automated [employer]] The system which generated this result transmitted reference range: 15-65 PG/ML. The reference range was not used to interpret this result as normal/abnormal. PHOSPHORUS (test code = 2777-1) 3.9 MG/DL See_Comment [Automated [employer]] The system which generated this result transmitted reference range: 2.5-4.5 MG/DL. The reference range was not used to interpret this result as normal/abnormal. BI SELF-REFERRED SCREENING TOMOSYNTHESIS [id number] 19:14:17 Examination:BI SELF-REFERRED SCREENING TOMOSYNTHESIS BILATERAL History:Patient is 69 year old and is seen for: ?Annual mmg. Computer-aided detection (CAD) utilized. Comparisons: 03/26/2019 BI SCREENING TOMOSYNTHESIS BILATERAL and 11/12/2010 BI SCREENING MAMMOGRAM BILATERAL Findings:The breasts havescattered areas of fibroglandular density. RightPreviously described finding does not persist. There is no evidence of suspicious masses, calcifications, or other abnormal findings in the right breast. LeftThere is no evidence of suspicious masses, calcifications, or other abnormal findings in the left breast. BilateralThere are round calcifications seen in both breasts. Compared to the previous study, there are no significant changes. There is no evidence of suspicious masses, calcifications, or other abnormal findings. Impression:No signs of malignancy. Recommendation:Annual mammographic follow-up - Bilateral BI-RADS Category: Both [facility] BRE[facility] [id number] 14:53:40Examination:BI ULTRASOUND BREAST LIMITED RIGHT History:Patient is 68 year old and is seen for:?Possible mass in lower retroareolar right breast, visible only in mlo view.?Hormone history includes other. Surgical history includes hysterectomy. No relevant medical history has been documented for thispatient. Comparisons: 03/26/2019 BI SCREENING TOMOSYNTHESIS BILATERAL Findings:There is no evidenceof suspicious masses or other abnormal findings. Small 2.7 mm cyst is visualized in retroareolar region. Impression:No solid mass detected. Recommendation:Annual mammographic follow-up - Right? BI-RADS Category: Right [facility] Right 2 ViewKnee Right 2 View
[2023-10-04 15:47] LABS: Absolute Lymphocytes (CBC) 0.8 K/uL (0.7-4.9); Hematocrit 31.8 % (36.0-45.0); Lymphocytes % 6.9 % (15.3-44.8); MCV 99.4 fL (80-100); MPV 8.7 fL (7.6-11.3); Platelets 327 thou/uL (152-406)
[2023-10-04 15:50] LABS: Protime INR 1.12
[2023-10-04 16:07] LABS: Blood Morphology Comment NOT SEEN (NOT SEEN); Platelet Estimate ADEQ; White Blood Cell Scan OK (OK)
[2023-10-04 16:32] LABS: Albumin 2.9 g/dL (3.4-5.0); Bilirubin Direct 0.2 mg/dL (0-0.2); Bilirubin Indirect, Calculated 0.3 mg/dL (0.2-0.8); Bilirubin Total 0.5 mg/dL (0.2-1.0); Magnesium 2.1 mg/dL (1.6-2.4); Potassium 5.6 mEq/L (3.5-5.1); Protein, Total 7.2 g/dL (6.4-8.2)
[2023-10-04 16:39] LABS: Troponin High Sensitivity 8143.8 pg/mL (<58.9)
--- NOTE | 2023-10-04 17:10 | ER ---
Nurse's Notes [facility] Name: Clari Brandt Age: 73 yrs Sex: Female : 1950 Arrival Date: 10/04/2023 Time: 15:10 Bed 16 Private MD: Diagnosis: Fall on same level, unspecified;Displaced fracture of base of neck of left femur;COPD/ Chronic obstructive pulmonary disease with (acute) exacerbation;Non ST elevation AR;Acute kidney failure, unspecified;Hyperkalemia;Tobacco abuse counseling;Tobacco use Presentation: 10/04 15:14 Chief complaint: Patient states: "i fell down and went boom" Patient states she fell ap3 this afternoon. Patient denies dizziness prior to fall, denies LOC and reports she is not on blood thinners. patient is complaining of pain to the left hip. EMS initiated a 20g IV to the left AC, and administered 50mcg of fentanyl and 4mg of zofran IV. Coronavirus screen: At this time, the client does not indicate any symptoms associated with coronavirus-19. Ebola Screen: No symptoms or risks identified at this time. Initial Sepsis Screen: Does the patient meet any 2 criteria? No. Patient's initial sepsis screen is negative. Does the patient have a suspected source of infection? No. Patient's initial sepsis screen is negative. Risk Assessment: Do you want to hurt yourself or someone else? Patient reports no desire to harm self or others. Onset of symptoms was October 04, 2023. 15:14 Method Of Arrival: EMS: [facility] ap3 15:14 Acuity: SNEHA 2 ap3 15:16 Care prior to arrival: Medication(s) given: zofran 4 mg, fentanyl 50 mcg IV IV ap3 initiated. 20 GA, in the left antecubital area. Triage Assessment: 15:15 General: Appears in no apparent distress. Behavior is calm, cooperative, appropriate ap3 for age. Pain: Complains of pain in left hip. Neuro: Level of Consciousness is awake, alert, obeys commands, Oriented to person, place, time, situation, Appropriate for age Speech is normal. Cardiovascular: Patient's skin is warm and dry. Respiratory: Airway is patent Respiratory effort is even, unlabored. Historical: - Allergies: 15:15 No Known Allergies; ap3 - PMHx: 15:15 Atrial Fib; COPD; Hyperlipidemia; Hypertension; ap3 - Immunization history:: Adult Immunizations unknown. - Social history:: Smoking status: Patient reports the use of cigarette tobacco products, smokes one pack cigarettes per day. Screenin:02 [facility] ED Fall Risk Assessment (Adult) History of falling in the last 3 months, me1 including since admission Yes- single mechanical fall (1 pt) Confusion or Disorientation No (0 pts) Intoxicated or Sedated No (0 pts) Impaired Gait Yes (1 pt) Mobility Assist Device Used Yes (1 pt) Altered Elimination No (0 pt) Score/Fall Risk Level 3 or more points = High Risk Maintained a safe environment, Provided non-skid footwear, Hourly rounding (assess needs \\T\\ fall precautionary measures) done, Used ambulatory aids as needed (educated on \\T\\ assisted with). Abuse screen: Denies threats or abuse. Nutritional screening: No deficits noted. Tuberculosis screening: No symptoms or risk factors identified. Assessment: 16:02 General: Appears uncomfortable, slender, well groomed, well developed, Behavior is me1 calm, cooperative, appropriate for age, Reports "i fell down and went boom" Patient states she fell this afternoon. Patient denies dizziness prior to fall, denies LOC and reports she is not on blood thinners. patient is complaining of pain to the left hip. Pain: Complains of pain in pelvis and left hip Pain does not radiate. Pain currently is 8 out of 10 on a pain scale. Quality of pain is described as sharp, Pain began suddenly, Is continuous. Neuro: Level of Consciousness is awake, alert, obeys commands, Oriented to person, place, time, situation, Appropriate for age. Cardiovascular: Capillary refill < 3 seconds Patient's skin is warm and dry. Respiratory: Airway is patent Trachea midline Respiratory effort is even, unlabored, Respiratory pattern is regular, symmetrical. 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 Injury Description: fall. 18:20 Reassessment: Patient and/or family updated on plan of care and expected duration. Pain ap3 level reassessed. Patient is alert, oriented x 3, equal unlabored respirations, skin warm/dry/pink. this nurse called patients to update on patients status. Vital Signs: 15:07 BP 80 / 62; Pulse 105; Resp 19; Temp 98.7(O); Pulse Ox 97% on 4 lpm NC; Weight 33.57 kg;me1 16:00 BP 86 / 67; Pulse 94; Resp 19; Pulse Ox 98% on 4 lpm NC; me1 17:14 Weight 35.38 kg; me1 18:02 BP 111 / 88; Pulse 92; Resp 23; Pulse Ox 100% on 4 lpm NC; ap3 18:21 BP 127 / 95; Pulse 91; Pulse Ox 98% on 4 lpm NC; ap3 19:03 BP 88 / 62; Pulse 94; Resp 22; Pulse Ox 99% on R/A; me1 ED Course: 15:11 Patient arrived in ED. me1 15:13 Orlin Andrews MD is Attending Physician. jessica 15:15 Triage completed. ap3 15:32 Basic Metabolic Panel Sent. mb9 15:32 CBC with Diff Sent. mb9 15:32 LFT's Sent. mb9 15:32 Magnesium Sent. mb9 15:32 NT PRO-BNP Sent. mb9 15:32 PT-INR Sent. mb9 15:32 Troponin HS Sent. mb9 15:35 Jamia Piper, RN is Primary Nurse. me1 16:02 No provider procedures requiring assistance completed. Maintain EMS IV. Dressing me1 intact. Good blood return noted. Site clean \\T\\ dry. Gauge \\T\\ site: 20 g LAC. 16:02 Patient has correct armband on for positive identification. Placed in gown. Bed in low me1 position. Side rails up X2. Provided Education on: POC. Verbalized understanding. . 17:07 XRAY Chest (1 view) In Process Unspecified. EDMS 17:07 Pelvis XRAY In Process Unspecified. EDMS 17:07 Femur Left XRAY In Process Unspecified. EDMS 17:09 transfer [address] [facility] by dr Andrews,pt denied due to no icu beds at this time. bd 17:[address] [facility] by dr andrews. bd 17:31 Type And Screen Sent. me1 18:51 pt accepted in transfer to [facility]cu by dr morejon admin approval given by Solange Prasad. 19:05 Patient transferred, IV remains in place. me1 19:05 Arm band placed on Patient placed in an exam room. me1 19:06 Urinalysis w/ reflexes Sent. me1 19:14 Mandel cath inserted, using sterile technique, 16 Fr., by ak, balloon inflated, to me1 gravity drainage, urine specimen collected. Administered Medications: 15:56 Drug: NS 0.9% IV 1000 ml IV at 125 ml/hr continuous Route: IV; Rate: 125 ml/hr; Site: ak1 left antecubital; 19:14 Follow up: IV Status: Infusion continued upon transfer me1 15:56 Drug: MethylPrednisoLONE IVP 2 mg/kg IVP once Route: IVP; Site: left antecubital; me1 15:56 Follow up: Response: No adverse reaction me1 15:56 Drug: Levalbuterol Inhalation 2.5 mg Inhalation once Route: Inhalation; me1 15:57 Follow up: Response: No adverse reaction; Wheezing diminished me1 15:56 Drug: Ipratropium Inhalation Aerosol 0.5 mg Inhalation once Route: Inhalation; me1 15:57 Follow up: Response: No adverse reaction; Wheezing diminished me1 15:56 Drug: Famotidine IVP 20 mg IVP once; dilute with 10 mL 0.9% NaCl; give over 2 minutes me1 Route: IVP; Site: left antecubital; 15:56 Follow up: Response: No adverse reaction me1 15:56 Drug: Ondansetron IVP 4 mg IVP once; over 2 minutes Route: IVP; Site: left antecubital; me1 15:57 Follow up: Response: No adverse reaction; Nausea is decreased me1 17:20 Drug: Ondansetron IVP 4 mg IVP once; over 2 minutes Route: IVP; Site: left antecubital; me1 17:38 Follow up: Response: No adverse reaction me1 17:22 Drug: Heparin (AR Drip) 12 units/kg/[place] - ([place] [address] units, D5W IV 500 ml) IV at me1 calculated rate Per protocol; Max initial rate 1000 units/hr {Co-Signature: micaela3 (Swetha Olson RN).} {Note: 420 units/hr.} Route: IV; Rate: calculated rate; Site: left antecubital; 19:05 Follow up: IV Status: Infusion continued upon transfer me1 17:24 Drug: Heparin (AR-Bolus No thrombolytic) - HEParin IVP 60 units/kg IVP once; Max 5000 me1 units {Co-Signature: ap3 (Swetha Olson RN).} Route: IVP; Site: left antecubital; 17:39 Follow up: Response: No adverse reaction me1 17:31 Drug: Aspirin PO Chewable Tablet 81 mg PO once Route: PO; me1 17:39 Follow up: Response: No adverse reaction me1 17:32 Drug: Albuterol Inhalation 2.5 mg Inhalation once Route: Inhalation; me1 17:38 Follow up: Response: No adverse reaction; Wheezing diminished me1 18:33 Drug: Kayexalate PO 30 grams PO once Route: PO; me1 19:00 Follow up: Response: No adverse reaction me1 Medication: 16:02 VIS not applicable for this client. me1 Outcome: 17:09 ER care complete, transfer ordered by . jessica 19:03 Transferred to [facility], [facility], Transfer form completed. Note: report me1 called to LISA Narvaez by Swetha. 19:03 Condition: stable 19:03 Instructed on the need for transfer, 19:26 Patient left the ED. ap3 Signatures: Dispatcher [employer] EDMS Qing Brown Corey, MD MD cha Prokisch, Amanda, RN RN ap3 Libertad Cormier RN RN mb9 Jamia Piper RN RN me1 Swetha Olson RN ap3 Corrections: (The following items were deleted from the chart) 16:02 15:14 Chief complaint: Patient states: "i fell down and went boom" Patient states she me1 fell this afternoon. Patient denies dizziness prior to fall, denies LOC and reports she is not on blood thinners. patient is complaining of pain to the left hip. EMS initiated a 20g IV to the left AC, and administered 50mcg of fentanyl and 4mg of zofran IV. ap3 18:14 15:32 TYPE AND SCREEN+BB.LAB.BRZ drawn and sent. mb9 EDMS
--- NOTE | 2023-10-04 17:10 | EDPHYS ---
Physician Documentation [facility] Name: Clari Brandt Age: 73 yrs Sex: Female : 1950 Arrival Date: 10/04/2023 Time: 15:10 Bed 16 Private MD: ED Physician Orlin Andrews HPI: 10/04 15:51 This 73 yrs old Female presents to ER via EMS with complaints of FALL AND jessica LEAF HIP PAIN. 15:51 The patient or guardian reports decreased range of motion, an injury, pain. left leg is jessica externally rotated, The patient is not able to ambulate. Patient is not able to bear weight. There is no radiation of the patient's discomfort. The complaints affect the left hip. Onset: The symptoms/episode began/occurred this morning. Modifying factors: The symptoms are alleviated by remaining still, the symptoms are aggravated by any movement, flexion. TRIPPED THIS AM AT HOME ON RAMP, PAIN TO LEFT HIP. Associated signs and symptoms: Loss of consciousness: the patient experienced no loss of consciousness, Pertinent positives: dizziness. Severity of symptoms: At their worst the symptoms were moderate in the emergency department the symptoms are unchanged. The patient has not experienced similar symptoms in the past. Historical: - Allergies: 15:15 No Known Allergies; ap3 - PMHx: 15:15 Atrial Fib; COPD; Hyperlipidemia; Hypertension; ap3 - Immunization history:: Adult Immunizations unknown. - Social history:: Smoking status: Patient reports the use of cigarette tobacco products, smokes one pack cigarettes per day. ROS: 16:09 Constitutional: Negative for fever, chills, and weight loss, Eyes: Negative for injury, jessica pain, redness, and discharge, ENT: Negative for injury, pain, and discharge, Neck: Negative for injury, pain, and swelling, Respiratory: Negative for shortness of breath, cough, wheezing, and pleuritic chest pain, Abdomen/GI: Negative for abdominal pain, nausea, vomiting, diarrhea, and constipation, Back: Negative for injury and pain, : Negative for injury, bleeding, discharge, and swelling, Skin: Negative for injury, rash, and discoloration, Neuro: Negative for headache, weakness, numbness, tingling, and seizure, Psych: Negative for depression, anxiety, suicide ideation, homicidal ideation, and hallucinations, Allergy/Immunology: Negative for hives, rash, and allergies, Endocrine: Negative for neck swelling, polydipsia, polyuria, polyphagia, and marked weight changes, Hematologic/Lymphatic: Negative for swollen nodes, abnormal bleeding, and unusual bruising, 16:09 Cardiovascular: Positive for palpitations, 16:09 Respiratory: Positive for cough, shortness of breath, wheezing, expiratory, 16:09 MS/extremity: Positive for decreased range of motion, pain, tenderness, of the left hip, left gluteal fold, left inner thigh and left upper thigh, Exam: 16:09 Constitutional: This is a well developed, well nourished patient who is awake, alert, jessica and in no acute distress. Head/Face: Normocephalic, atraumatic. Eyes: Pupils equal round and reactive to light, extra-ocular motions intact. Lids and lashes normal. Conjunctiva and sclera are non-icteric and not injected. Cornea within normal limits. Periorbital areas with no swelling, redness, or edema. ENT: Nares patent. No nasal discharge, no septal abnormalities noted. Tympanic membranes are normal and external auditory canals are clear. Oropharynx with no redness, swelling, or masses, exudates, or evidence of obstruction, uvula midline. Mucous membranes moist. Neck: Trachea midline, no thyromegaly or masses palpated, and no cervical lymphadenopathy. Supple, full range of motion without nuchal rigidity, or vertebral point tenderness. No Meningismus. Chest/axilla: Normal chest wall appearance and motion. Nontender with no deformity. No lesions are appreciated. Abdomen/GI: Soft, non-tender, with normal bowel sounds. No distension or tympany. No guarding or rebound. No evidence of tenderness throughout. Back: No spinal tenderness. No costovertebral tenderness. Full range of motion. Female : Normal external genitalia. Skin: Warm, dry with normal turgor. Normal color with no rashes, no lesions, and no evidence of cellulitis. Neuro: Awake and alert, GCS 15, oriented to person, place, time, and situation. Cranial nerves II-XII grossly intact. Motor strength 5/5 in all extremities. Sensory grossly intact. Cerebellar exam normal. Normal gait. Psych: Awake, alert, with orientation to person, place and time. Behavior, mood, and affect are within normal limits. 16:09 Cardiovascular: Rate: tachycardic, actual rate is 105 bpm, Rhythm: regular, Pulses: Heart sounds: normal, Edema: is not appreciated, JVD: is not appreciated, 16:09 Respiratory: mild respiratory distress is noted, Respirations: labored breathing, that is mild, Breath sounds: decreased breath sounds, rhonchi, + upper airway congestion. wheezing: inspiratory expiratory 17:11 ECG was reviewed by the Attending Physician. jessica Vital Signs: 15:07 BP 80 / 62; Pulse 105; Resp 19; Temp 98.7(O); Pulse Ox 97% on 4 lpm NC; Weight 33.57 kg;me1 16:00 BP 86 / 67; Pulse 94; Resp 19; Pulse Ox 98% on 4 lpm NC; me1 17:14 Weight 35.38 kg; me1 18:02 BP 111 / 88; Pulse 92; Resp 23; Pulse Ox 100% on 4 lpm NC; ap3 18:21 BP 127 / 95; Pulse 91; Pulse Ox 98% on 4 lpm NC; ap3 19:03 BP 88 / 62; Pulse 94; Resp 22; Pulse Ox 99% on R/A; me1 MDM: 15:13 Patient medically screened. jessica 16:20 Differential diagnosis: hip fracture, intertrochanteric fracture, femoral neck jessica fracture, femoral shaft fracture, bursitis, arthritis, strain. Differential Diagnosis altered mental status, sepsis, flu. Data reviewed: vital signs, nurses notes, EMS record, lab test result(s), EKG, radiologic studies, plain films. Consideration of Admission/Observation Patient was admitted/placed on observation. Escalation of care including admission/observation considered. I considered the following discharge prescriptions or medication management in the emergency department Medications were administered in the Emergency Department. See MAR. Independent interpretation of the following test(s) in the Emergency Department EKG: See my EKG interpretation above. 10/04 15:15 Order name: Basic Metabolic Panel; Complete Time: 16:50 [facility] 10/04 15:15 Order name: CBC with Diff; Complete Time: 16:50 [facility] 10/04 15:15 Order name: LFT's; Complete Time: 16:50 [facility] 10/04 15:15 Order name: Magnesium; Complete Time: 16:50 [facility] 10/04 15:15 Order name: NT PRO-BNP; Complete Time: 16:50 [facility] 10/04 15:15 Order name: PT-INR; Complete Time: 16:50 [facility] 10/04 15:15 Order name: Troponin HS; Complete Time: 16:50 [facility] 10/04 15:50 Order name: CBC Smear Scan; Complete Time: 16:50 EDMS 10/04 16:34 Order name: Type And Screen bd 10/04 17:04 Order name: Ptt, Activated [facility] 10/04 15:15 Order name: XRAY Chest (1 view) [facility] 10/04 15:15 Order name: Pelvis XRAY [facility] 10/04 15:15 Order name: Femur Left XRAY [facility] 10/04 15:15 Order name: EKG; Complete Time: 15:15 [facility] 10/04 15:15 Order name: Cardiac monitoring; Complete Time: 15:16 [facility] 10/04 15:15 Order name: EKG - Nurse/Tech; Complete Time: 19:14 [facility] 10/04 15:15 Order name: IV Saline Lock; Complete Time: 15:17 [facility] 10/04 15:15 Order name: Labs collected and sent; Complete Time: 15:32 [facility] 10/04 15:15 Order name: O2 Per Protocol; Complete Time: 15:17 [facility] 10/04 15:15 Order name: O2 Sat Monitoring; Complete Time: 15:17 [facility] 10/04 15:46 Order name: IV Saline Lock - Large Bore; Complete Time: 15:58 [facility] 10/04 15:54 Order name: Labs - recollect needed: recollect type and screen, re band pt and fill to bd the top; Complete Time: 16:16 10/04 16:50 Order name: Mandel; Complete Time: 18:56 [facility] EC:11 Rate is 94 beats/min. Rhythm is regular. QRS [place] is Normal. CT interval is normal. QRS jessica interval is normal. QT interval is normal. No Q waves. T waves are Normal. No ST changes noted. Clinical impression: NSR w/ Non-specific ST/T Changes and No evidence of ischemia. Interpreted by me. Reviewed by me. Administered Medications: 15:56 Drug: NS 0.9% IV 1000 ml IV at 125 ml/hr continuous Route: IV; Rate: 125 ml/hr; Site: nh1 left antecubital; 19:14 Follow up: IV Status: Infusion continued upon transfer [facility] 15:56 Drug: MethylPrednisoLONE IVP 2 mg/kg IVP once Route: IVP; Site: left antecubital; me1 15:56 Follow up: Response: No adverse reaction me1 15:56 Drug: Levalbuterol Inhalation 2.5 mg Inhalation once Route: Inhalation; me1 15:57 Follow up: Response: No adverse reaction; Wheezing diminished me1 15:56 Drug: Ipratropium Inhalation Aerosol 0.5 mg Inhalation once Route: Inhalation; me1 15:57 Follow up: Response: No adverse reaction; Wheezing diminished me1 15:56 Drug: Famotidine IVP 20 mg IVP once; dilute with 10 mL 0.9% NaCl; give over 2 minutes me1 Route: IVP; Site: left antecubital; 15:56 Follow up: Response: No adverse reaction me1 15:56 Drug: Ondansetron IVP 4 mg IVP once; over 2 minutes Route: IVP; Site: left antecubital; me1 15:57 Follow up: Response: No adverse reaction; Nausea is decreased me1 17:20 Drug: Ondansetron IVP 4 mg IVP once; over 2 minutes Route: IVP; Site: left antecubital; me1 17:38 Follow up: Response: No adverse reaction me1 17:22 Drug: Heparin (IN Drip) 12 units/kg/[place] - ([place] [address] units, D5W IV 500 ml) IV at me1 calculated rate Per protocol; Max initial rate 1000 units/hr {Co-Signature: ap3 (Swetha Olson RN).} {Note: 420 units/hr.} Route: IV; Rate: calculated rate; Site: left antecubital; 19:05 Follow up: IV Status: Infusion continued upon transfer me1 17:24 Drug: Heparin (IN-Bolus No thrombolytic) - HEParin IVP 60 units/kg IVP once; Max 5000 me1 units {Co-Signature: ap3 (Swetha Olson RN).} Route: IVP; Site: left antecubital; 17:39 Follow up: Response: No adverse reaction me1 17:31 Drug: Aspirin PO Chewable Tablet 81 mg PO once Route: PO; me1 17:39 Follow up: Response: No adverse reaction me1 17:32 Drug: Albuterol Inhalation 2.5 mg Inhalation once Route: Inhalation; me1 17:38 Follow up: Response: No adverse reaction; Wheezing diminished me1 18:33 Drug: Kayexalate PO 30 grams PO once Route: PO; me1 19:00 Follow up: Response: No adverse reaction me1 Disposition Summary: 10/04/23 17:09 Transfer Ordered Notes: Transfer Location: [facility] jessica Reason: Higher level of care jessica Condition: Serious jessica Problem: new jessica Symptoms: are unchanged jessica Accepting Physician: TO [facility](10/04/23 19:26) ap3 Diagnosis - Fall on same level, unspecified jessica - Displaced fracture of base of neck of left femur jessica - COPD/ Chronic obstructive pulmonary disease with (acute) exacerbation jessica - Non ST elevation IN jessica - Acute kidney failure, unspecified jessica - Hyperkalemia jessica - Tobacco abuse counseling jessica - Tobacco use jessica Forms: - Medication Reconciliation Form jessica - SBAR form jessica Signatures: Dispatcher [employer] EDMS Qing Brown Corey, MD MD cha Prokisch, Amanda RN RN ap3 Jamia Piper RN RN [facility] Swetha Olson RN ap3 Corrections: (The following items were deleted from the chart) 15:42 15:16 Hip Left 2 View+RAD.RAD.BRZ ordered. EDMS EDMS 18:14 15:15 TYPE AND SCREEN+BB.LAB.BRZ ordered. EDMS EDMS 19:26 17:09 TO [facility] jessica ap3
--- NOTE | 2023-10-04 17:22 | RAD REPORT ---
EXAM DESCRIPTION: Bonilla Single View10/04/2023 5:05 pm CLINICAL HISTORY: Chest pain COMPARISON: 2021 FINDINGS: Marked COPD The lungs appear clear of acute infiltrate. The heart is normal size IMPRESSION: No acute abnormalities displayed
--- NOTE | 2023-10-04 17:25 | RAD REPORT ---
EXAM DESCRIPTION: RAD - Pelvis - 10/04/2023 5:05 pm CLINICAL HISTORY: Pelvic pain status post injury FINDINGS: Mildly displaced fractures involve the left inferior and superior pubic rami . Mild impaction left subcapital femoral fracture suspected No dislocation
--- NOTE | 2023-10-04 17:25 | RAD REPORT ---
EXAM DESCRIPTION: RAD - Femur Left - 10/04/2023 5:05 pm CLINICAL HISTORY: Left leg pain FINDINGS: Mildly displaced fractures involve the left inferior and superior pubic rami . Mild impaction left subcapital femoral fracture suspected No dislocation
[2023-10-04 21:35] VITALS: BP 88/62; O2SAT 99
--- NOTE | 2023-10-05 13:23 | EKG ---
Test Date: 2023-10-04 Test Time: 16:48:17 [place]ter: SAIRA MEASUREMENT RESULTS: Intervals: Rate: 94 VA: 114 QRSD: 88 QT: 348 QTc: 435 [place]: P: 81 VA: 114 QRS: 99 T: 87 INTERPRETIVE STATEMENTS: Normal sinus rhythm Nonspecific ST abnormality Abnormal ECG Compared to ECG 06/16/2018 13:06:33 ST (T wave) deviation now present Short VA interval no longer present Electronically Signed On 10-05-23 13:21:40 [employer] by Allan Ferrell
== END ==
LOC: ER 15:10
DX: S72.042A Displaced fracture of base of neck of left femur, initial encounter for closed fracture (principal); I21.4 Non-ST elevation (NSTEMI) myocardial infarction; J44.1 Chronic obstructive pulmonary disease with (acute) exacerbation; E87.5 Hyperkalemia; N17.9 Acute kidney failure, unspecified; W18.30XA Fall on same level, unspecified, initial encounter; Z72.0 Tobacco use; Z71.6 Tobacco abuse counseling; I10 Essential (primary) hypertension
CPT/HCPCS: 36415; 71045; 72170; 80048; 80076; 83735; 83880; 84484; 85025; 85610; 85730; 93005; J1644; J2405; J2930; J7030; J7613; J7614; J7644